=== PATIENT | female | born 1960 | race Caucasian/White ===

== ENCOUNTER 2021-12-17 09:44 | Inpatient (IN) ==
[2021-12-17] MEDS ORDERED: ALBUT/IPRATROP 3MG/0.5MG NEB 3 ML VIAL NEB STA (10:07)
[2021-12-17] MEDS ORDERED: ACETAMINOPHEN 325 MG TAB PO STA (10:11)
--- NOTE | 2021-12-17 10:45 | XRay Report ---
SINGLE VIEW CHEST CLINICAL HISTORY: Cough and dyspnea. Fever. FINDINGS: An AP, portable, upright chest radiograph is compared to study dated 03/14/2021 and correla eleno with chest CT dated 07/15/2014. The cardiomediastinal silhouette is unremarkable. Emphysema and ch ronic interstitial thickening similar to previous. Scarring/atelectasis is noted at the lung bases. T he lungs and pleural spaces are otherwise clear. No pneumothorax is seen. The skeletal structures are osteopenic. The bony thorax is grossly intact. Degenerative change is seen in the shoulders. IMPRESSION: Emphysematous change with no active disease in the chest. ACT 112: Negative or not required by law. Electronically signed by: Jamshid Cho M.D. 12/17/2021 10:43 AM
[2021-12-17 11:26] LABS: Basophils # (auto) 0.05 K/uL (0-0.2); Basophils % (auto) 0.6 %; Eosinophils # (auto) 0.28 K/uL (0-0.50); Eosinophils % (auto) 3.5 %; Hematocrit (blood only) 45.3 % (34.1-44.9); Hemoglobin 15.5 g/dl (12.0-16.0); Immature Granulocytes # (auto) 0.05 K/uL (0.00-0.02); Immature Granulocytes % (auto) 0.6 %; Lymphocytes # (auto) 1.12 K/uL (1.2-3.4); Lymphocytes % (auto) 13.8 %; Mean Corpuscular Hemoglobin 31.7 pg (25.0-34.0); Mean Corpuscular Hgb Conc 34.2 g/dL (32.0-36.0); Mean Corpuscular Volume 92.6 fL (80.0-100.0); Mean Platelet Volume 11.6 fL (9.4-12.3); Monocytes % (auto) 17.3 %; Neutrophils % (auto) 64.2 %; Platelet Count 236 K/uL (130-400); RDW Coefficient of Variation 14.3 % (11.5-14.5); RDW Standard Deviation 48.8 fL (36.4-46.3); Red Blood Count 4.89 M/uL (3.93-5.22)
[2021-12-17 11:37] LABS: Influenza A virus by PCR Negative (Neg); Influenza B virus by PCR Negative (Neg); RSV by PCR Negative (Neg); SARS CoV2 RNA(COVID-19) InHosp NEGATIVE (Negative)
[2021-12-17 11:58] LABS: Albumin Globulin Ratio 1.3 (0.9-2); Albumin Level 4.3 gm/dl (3.4-5.0); BUN Creatinine Ratio 19.7 (10-20); Bilirubin,Total 0.3 mg/dl (0.2-1.0); Calcium 9.3 mg/dl (8.5-10.1); Creatinine Clr Calc Pharmacy 86.3 ml/min; Est GFR (African American) 111.8 ml/min; Est GFR (Non-African American) 96.5 ml/min; Globulin 3.3 gm/dl (2.5-4.0); Potassium 4.1 mmol/L (3.5-5.1); Total Protein 7.6 gm/dl (6.0-8.3)
[2021-12-17] MEDS ORDERED: dexAMETHasone**PF** 10 MG/ML VIAL IV ONE (12:28)
--- NOTE | 2021-12-17 13:38 | History & Physical Report ---
Date of Service December 17, 2021 Assessment & Plan (1) Pneumonia: (2) COPD (chronic obstructive pulmonary disease): (3) Acute on chronic respiratory failure with hypoxia: Plan: - COVID-19 is highly suspected as the patient has been in close contact with a positive patient, unvaccinated, and is newly symptomatic. Initial test for covid with cefeid is negative, biofire is pending to evaluate and identify other causative agents. Suspicion for an underlying pneumonia in the setting of her chronic COPD - Procalcitonin ordered, follow - Lymphocytes , neutrophils 5.20 - CXR reviewed: showing showing emphysematous changes but no acute active disease in the chest - O2 sats are 87% in the ER without oxygen, improved to 94% with 2 L, patient does not wear any O2 at baseline - WBC 8.10 - Remdesivir 200 mg IV x 1 then 100 mg daily therafter, decadron 6 mg IV daily. Patient already received a dose of Decadron in the ER 10 mg IV. - Checking blood cultures x2, lactic acid, CRP - Starting on ceftriaxone and doxycycline IV - Patient uses albuterol inhaler several times daily at home, is not on any other inhaler therapy, consider pulmonary consultation for maintenance regimen of COPD, formal PFTs, ongoing care. (4) HTN (hypertension): Plan: - Patient is not on any antihypertensive medications, BP is currently 160/74, monitor on telemetry -Order IV hydralazine as needed DVT PPx: -- teds, scds, Lovenox subcu 40 mg daily, increase chemical prophylaxis if positive for COVID CODE: DNR/DNI-discussed with the patient in depth over the phone. Dispo: From home, likely to remain in the hospital x 1-2 days. History of Present Illness Chief Complaint: Fever Primary Care Provider: NO PCP This is a 61 yo F with PMHx of COPD, emphysema, HTN, who presents with acute onset of flu like symptoms including, fever, chills, cough and shortness of breath which began overnight. She was found to be hypoxic in the 80s when she presented to the ER. Pt also came with her boyfriend to the ER, who is also a patient in a different room, and he tested positive for COVID. Ailyn tests negative for covid today. Early this morning her fever was 101.7, and took one tylenol at home at 3am. She also admits to cough with green sputum which has been ongoing x 1 month, worse today though, admits to sinus congestion. She has chest heaviness and feels that this happens routinely at bedtime, it is no different today. She routinely smokes 1ppd since was 13 years old, but has never required oxygen at baseline. Reports living with her boyfriend, Jonatan Gonzalez. They have been around each other and sharing common spaces, but do not sleep in the same bedroom. She notes he has had similar complaints for a few days. Not vaccinated against covid. She uses an albuterol inhaler as a rescue inhaler and normally uses it daily but not today. Allergies Allergy/AdvReac Type Severity Reaction Status Date / Time No Known Allergies Allergy Mild Verified 12/17/21 12:17 Home Medications Medication Instructions Recorded Confirmed Type albuterol 90 mcg/actuation aerosol 90 mcg inhalation Q6H PRN 12/17/21 12/17/21 History inhaler Shortness Of Breath Past Med/Surg History Medical History (Updated 12/17/21 @ 14:20 by Nancy Horan PA-C) Acute lumbar myofascial strain COPD (chronic obstructive pulmonary disease) HTN (hypertension) Surgical History (Updated 12/17/21 @ 14:13 by Nancy Horan PA-C) History of tonsillectomy and adenoidectomy Hx of repair of left rotator cuff Family History (Updated 12/17/21 @ 14:14 by Nancy Horan PA-C) Mother Cancer Lung Father Cancer Prostate and bladder cx Brother Melanoma Back, s/p removal Social History (Updated 12/17/21 @ 14:14 by Nancy Horan PA-C) Smoking Status: Current every day smoker Tobacco Type: Cigarettes Hx Alcohol Use: Yes Alcohol type: beer Alcohol type Comment: 2-3 daily Preferred Language: Icelandic Feels Safe at Home: Yes Review of Systems Review of Systems: Constitutional: + fever, no sweats or chills Eyes: No diplopia, no worsening or blurred vision ENT: normal hearing, no trouble swallowing Respiratory: + cough, + sputum, dyspnea at rest, + dyspnea on exertion Cardiovascular: No chest pain, + chest heaviness HS as per HPI, none currently, no palpitations Abdomen: No pain, nausea, vomiting, diarrhea or constipation Musculoskeletal: No joint pain, calf pain, swelling Neurologic: No weakness, numbness/tingling, or balance problems Psychiatric: No anxiety or depression Skin: No rash or itch Physical Exam Physical Exam: Please refer to attending addendum as I did not see the patient in person. Results & Data Results & Data ([facility]) Vital Signs (Past 12 Hours) Vital Signs Temp Pulse Pulse Resp BP BP Pulse Ox 12/17/21 13:04 94 H 18 160/74 H 94 12/17/21 12:00 104 H 24 87 L 12/17/21 10:08 38 C H 12/17/21 09:56 37.0 C 118 H 20 120/75 92 O2 Del Method O2 Flow Rate 12/17/21 13:04 Nasal Cannula 2 12/17/21 12:00 Room Air 12/17/21 10:08 12/17/21 09:56 Room Air Laboratory Results 12/17/21 12/17/21 12/17/21 10:59 10:59 10:45 WBC 8.10 RBC 4.89 Hgb 15.5 Hct 45.3 H MCV 92.6 MCH 31.7 MCHC 34.2 RDW Std Deviation 48.8 H RDW Coeff of Carla 14.3 Plt Count 236 MPV 11.6 Immature Gran % (Auto) 0.6 Neut % (Auto) 64.2 Lymph % (Auto) 13.8 [place] % (Auto) 17.3 Eos % (Auto) 3.5 Baso % (Auto) 0.6 Neut # (Auto) 5.20 Lymph # (Auto) 1.12 L [place] # (Auto) 1.40 H Eos # (Auto) 0.28 Baso # (Auto) 0.05 Immature Gran # (Auto) 0.05 H Sodium 136 Potassium 4.1 Chloride 104 Carbon Dioxide 23 Anion Gap 9 BUN 12 Creatinine 0.61 Est Cr Clr Drug Dosing 86.3 Est GFR ( Amer) 111.8 Est GFR (Non-Af Amer) 96.5 BUN/Creatinine Ratio 19.7 Glucose 94 Calcium 9.3 Total Bilirubin 0.3 AST 25 ALT 18 Alkaline Phosphatase 66 Total Protein 7.6 Albumin 4.3 Globulin 3.3 Albumin/Globulin Ratio 1.3 SARS-CoV-2 (PCR) NEGATIVE Influenza Type A (PCR) Negative Influenza Type B (PCR) Negative RSV (RT-PCR) Negative Diagnostic Findings Chest X-Ray 12/17/21 10:07 SINGLE VIEW CHEST CLINICAL HISTORY: Cough and dyspnea. Fever. FINDINGS: An AP, portable, upright chest radiograph is compared to study dated 03/14/2021 and correlated with chest CT dated 07/15/2014. The cardiomediastinal silhouette is unremarkable. Emphysema and chronic interstitial thickening similar to previous. Scarring/atelectasis is noted at the lung bases. The lungs and pleural spaces are otherwise clear. No pneumothorax is seen. The skeletal structures are osteopenic. The bony thorax is grossly intact. Degenerative change is seen in the shoulders. IMPRESSION: Emphysematous change with no active disease in the chest. ACT 112: Negative or not required by law. Electronically signed by: Jamshid Cho M.D. 12/17/2021 10:43 AM Code Status & VTE Plan Code Status DNR/DNI - discussed with the patient at bedside Supervising Physician Co-Signing Physician Notes Ending addendum: The patient was seen and examined in the emergency room She has been to a physician for years and does not take any prescribed medications and continues to smoke heavily Came to ER with increasing shortness of breath, cough and fever of 101 F since yesterday No chest pain and/or palpitation Recent COVID exposure and unvaccinated On examination Moderate shortness of breath at rest Hemodynamically stable with a temperature of 38 C Chestdecreased breath sounds bilaterally with coarse crackles bilaterally HeartS1-S2 regular Abdomenbenign Extremitiesnegative for any edema CNSalert, awake and oriented x3. No focal sensory or no motor deficit appreciated Her admission labs, EKG and imaging studies noted Has COPD with possible bronchitis and COVID-19 virus infection No definite pneumonic consolidation but will start antibiotic with ceftriaxone and doxycycline She is not vaccinated Started with remdesivir and dexamethasone Agree with assessment and plan as outlined above by BARTOLO Rodriguez Dr (1) COPD (chronic obstructive pulmonary disease) COPD type: COPD with acute exacerbation Qualified Code(s): J44.1 - Chronic obstructive pulmonary disease with (acute) exacerbation (2) HTN (hypertension) Hypertension type: unspecified Qualified Code(s): I10 - Essential (primary) hypertension
[2021-12-17] MEDS ORDERED: cefTRIAXone SODIUM 1,000 MG in DEXTROSE 5% 50 ML IV SCH (14:15)
[2021-12-17] MEDS ORDERED: REMDESIVIR 200 MG in SODIUM CHLORIDE 0.9% 210 ML IV STA (14:32)
[2021-12-17 15:37] LABS: Adenovirus PCR Not Detected (NotDetected); Bordetella parapertussis PCR Not Detected (NotDetected); Bordetella pertussis PCR Not Detected (NotDetected); Chlamydia pneumoniae PCR Not Detected (NotDetected); Coronavirus 229E PCR Not Detected (NotDetected); Coronavirus CoV-2 (COVID19)PCR Not Detected (NotDetected); Coronavirus HKU1 PCR Not Detected (NotDetected); Coronavirus NL63 PCR Not Detected (NotDetected); Coronavirus OC43PCR Not Detected (NotDetected); Human Metapneumovirus PCR Not Detected (NotDetected); Influenza A PCR Not Detected (NotDetected); Influenza B PCR Not Detected (NotDetected); Mycoplasma pneumoniae PCR Not Detected (NotDetected); Parainfluenza Virus 1 PCR Not Detected (NotDetected); Parainfluenza Virus 2 PCR Not Detected (NotDetected); Parainfluenza Virus 3 PCR Not Detected (NotDetected); Parainfluenza Virus 4 PCR Not Detected (NotDetected); Respiratory Syncytial VirusPCR Not Detected (NotDetected); Rhinovirus/Enterovirus PCR Not Detected (NotDetected)
[2021-12-17] MEDS: cefTRIAXone SODIUM 2,000 MG in DEXTROSE 5% 50 ML IV SCH (15:37)
[2021-12-17] MEDS ORDERED: ACETAMINOPHEN 325 MG TAB ONE (15:40)
[2021-12-17] MEDS: DOXYCYCLINE HYCLATE 100 MG in DEXTROSE 5% 100 ML IV SCH (16:03)
[2021-12-17] MEDS ORDERED: ACETAMINOPHEN 325 MG TAB PO PRN (19:53)
[2021-12-17] MEDS ORDERED: ONDANSETRON INJ 2 MG/ML 2 ML VIAL IV PRN (19:53)
[2021-12-17] MEDS: ALBUTEROL HFA 8 GM INHALER INH SCH (20:23)
[2021-12-17] MEDS: guaiFENesin 600 MG TABCR PO SCH (20:33)
[2021-12-18] MEDS: DOXYCYCLINE HYCLATE 100 MG in DEXTROSE 5% 100 ML IV SCH ×3 (03:27→15:39)
[2021-12-18 06:09] LABS: Hemoglobin 14.9 g/dl (12.0-16.0); Mean Corpuscular Hgb Conc 33.9 g/dL (32.0-36.0); Mean Corpuscular Volume 91.7 fL (80.0-100.0); Mean Platelet Volume 11.8 fL (9.4-12.3); Platelet Count 189 K/uL (130-400); RDW Standard Deviation 47.5 fL (36.4-46.3)
[2021-12-18 06:33] LABS: Albumin Globulin Ratio 1.3 (0.9-2); Albumin Level 3.8 gm/dl (3.4-5.0); BUN Creatinine Ratio 25.4 (10-20); Bilirubin,Total 0.2 mg/dl (0.2-1.0); Calcium 8.8 mg/dl (8.5-10.1); Chol HDL Ratio 3.3 (0-5); Creatinine Clr Calc Pharmacy 83.4 ml/min; Est GFR (African American) 110.6 ml/min; Est GFR (Non-African American) 95.5 ml/min; Globulin 2.9 gm/dl (2.5-4.0); Potassium 3.7 mmol/L (3.5-5.1); Total Protein 6.7 gm/dl (6.0-8.3)
--- NOTE | 2021-12-18 07:25 | Emergency Department Note ---
History of Present Illness General Chief complaint: Fever Stated complaint: FEVER,HEADACHE,BODY ACHES,SOB Time Seen by Provider: 12/17/21 10:00 Source: patient Mode of arrival: ambulatory Limitations: no limitations History of Present Illness Maximum Pain Intensity: 7 This patient is a 61-year-old female who presents to the emergency department for evaluation of shortness of breath and flulike symptoms. Patient reports that she woke up this morning feeling sick. Her significant other is ill with similar symptoms. Patient reports fevers, headaches, body aches, cough and shortness of breath. She is a smoker and has a history of COPD. Patient reports a recent COVID-19 exposure. She has not been vaccinated for COVID-19. Home Medications Medication Instructions Recorded Confirmed Type albuterol 90 mcg/actuation aerosol 90 mcg inhalation Q6H PRN 12/17/21 12/17/21 History inhaler Shortness Of Breath Allergies Allergy/AdvReac Type Severity Reaction Status Date / Time No Known Allergies Allergy Mild Verified 12/17/21 12:17 Past Med/Surg History Medical History Acute lumbar myofascial strain COPD (chronic obstructive pulmonary disease) HTN (hypertension) Surgical History History of tonsillectomy and adenoidectomy Hx of repair of left rotator cuff Family History Mother Cancer Lung Father Cancer Prostate and bladder cx Brother Melanoma Back, s/p removal Social History Smoking Status: Heavy tobacco smoker Tobacco Type: Cigarettes Second Hand Exposure: Yes; Do You Dip or Chew Tobacco: No; Tobacco Cessation Education Requested by Patient: No Hx Alcohol Use: Yes Alcohol type: beer and hard liquor Alcohol type Comment: 2- 3 daily Hx Substance Use: Yes Last Used Substance Other:: 30 years ago Preferred Language: Cuban Communication Ability: Effective Sprigger Required: No Beliefs That Will Affect Care: None Current Living Situation: Significant Other Other Information That Helps Us Care for You: No Feels Safe at Home: Yes Safety Concerns: Feels Safe At This Time Assistive Devices: Denture - Upper and Glasses Review of Systems A total of 10 systems reviewed and were otherwise negative Physical Exam Vital Signs Vital Signs - 24 hr 12/17/21 09:56 12/17/21 10:08 12/17/21 12:00 Temperature 37.0 C 38 C H Temperature Source Temporal Artery Scan Oral Pulse Rate 118 H Pulse Rate [Finger] 104 H Pulse Rhythm [Finger] Regular Pulse Strength [Finger] Normal Respiratory Rate 20 24 Respiratory Effort / Characteristics Pursed Lip Respiratory Depth Normal Blood Pressure 120/75 Blood Pressure [Left Arm] Blood Pressure Mean 90 Blood Pressure Mean [Left Arm] Pulse Oximetry 92 87 L Oxygen Delivery Method Room Air Room Air Oxygen Flow Rate Sepsis Recent Fever Within 48 Hours No Sepsis New/Unexplained Change in Mental Status N/A Sepsis Action Taken by Nursing No Action Required 12/17/21 13:04 Temperature Temperature Source Pulse Rate Pulse Rate [Finger] 94 H Pulse Rhythm [Finger] Pulse Strength [Finger] Respiratory Rate 18 Respiratory Effort / Characteristics Respiratory Depth Blood Pressure Blood Pressure [Left Arm] 160/74 H Blood Pressure Mean Blood Pressure Mean [Left Arm] 102 Pulse Oximetry 94 Oxygen Delivery Method Nasal Cannula Oxygen Flow Rate 2 Sepsis Recent Fever Within 48 Hours Sepsis New/Unexplained Change in Mental Status Sepsis Action Taken by Nursing VITALS: Vitals are noted on the nurse's note and reviewed by myself. GENERAL: This is a 61-year-old female, in no acute distress, well-developed well-nourished. SKIN: The skin was without rashes. EARS: External auditory canals clear, tympanic membranes pearly guaman without erythema or effusion bilaterally. EYES: Pupils equal round and reactive to light and accommodation. NOSE: Patent, turbinates without inflammation or discharge. MOUTH: Mucous membranes moist. Tonsils are not enlarged. Pharynx without erythema or exudate. NECK: Supple without nuchal rigidity. No lymphadenopathy. HEART: Regular rate and rhythm without murmurs gallops or rubs. LUNGS: Patient appears to be short of breath. Expiratory wheezes noted throughout. NEURO: Patient was alert and oriented to person place and time. Course Administered Medications Albuterol (Albuterol Hfa 8 Gm Inhaler) 2 puffs INH QIDR PETER Stop: 01/16/22 19:52 Last Admin: 12/18/21 07:46 Dose: 2 puffs Documented By: Admin: 12/17/21 20:23 Dose: 2 puffs Documented By: AB Guaifenesin (Guaifenesin 600 Mg Tabcr) 1,200 mg PO Q12 PETER Stop: 01/16/22 20:59 Last Admin: 12/17/21 20:33 Dose: 1,200 mg Documented By: KRISTAN Doxycycline Hyclate 100 mg/ (Dextrose) 110 mls @ 50 mls/hr IV Q12H PETER Stop: 12/24/21 14:44 Last Infusion: 12/18/21 05:39 Dose: 0 mls/hr Documented By: Admin: 12/18/21 03:27 Dose: 50 mls/hr Documented By: Infusion: 12/17/21 18:17 Dose: 0 mls/hr Documented By: Admin: 12/17/21 16:03 Dose: 50 mls/hr Documented By: SALIMA Ceftriaxone Sodium 2,000 mg/ (Dextrose) 70 mls @ 140 mls/hr IV Q24H PETER Stop: 12/24/21 14:59 Last Infusion: 12/17/21 16:09 Dose: 0 mls/hr Documented By: Admin: 12/17/21 15:37 Dose: 140 mls/hr Documented By: SALIMA Discontinued Medications Acetaminophen (Acetaminophen 325 Mg Tab) 650 mg PO NOW STA Stop: 12/17/21 10:12 Last Admin: 12/17/21 10:44 Dose: 650 mg Documented By: ERROL Acetaminophen (Acetaminophen 325 Mg Tab) Confirm Administered Dose 650 mg .ROUTE .STK-MED ONE Stop: 12/17/21 15:41 Last Admin: 12/17/21 15:44 Dose: 650 mg Documented By: SALIMA Albuterol (Albut/Ipratrop 3mg/0.5mg Neb 3 Ml Vial) 3 ml NEB NOW STA; Protocol Stop: 12/17/21 10:08 Last Admin: 12/17/21 10:45 Dose: 3 ml Documented By: ERROL Dexamethasone Sodium Phosphate (DexamethasonePf 10 Mg/Ml Vial) 10 mg IV NOW ONE Stop: 12/17/21 12:29 Last Admin: 12/17/21 12:33 Dose: 10 mg Documented By: ERROL Remdesivir 200 mg/ Sodium (Chloride) 250 mls @ 125 mls/hr IV ONE STA; Protocol Stop: 12/17/21 16:31 Last Infusion: 12/17/21 17:17 Dose: 0 mls/hr Documented By: Admin: 12/17/21 15:09 Dose: 125 mls/hr Documented By: SALIMA Medical Decision Making Differential Diagnosis Reactive airway disease, pneumonia, pneumothorax, COPD, CHF, infections, cardiac ischemia, pulmonary embolism, musculoskeletal, gastrointestinal, as well as other pathologies. Home Medications Current Medication List: was personally reviewed by me Laboratory Data Attestation: I reviewed the patient's lab results. Result diagrams: 12/18/21 05:40 12/18/21 05:40 Lab Results 12/17/21 12/17/21 12/17/21 Range/Units 10:45 10:45 10:59 WBC 8.10 (4.8-10.8) K/ul RBC 4.89 (3.93-5.22) M/uL Hgb 15.5 (12.0-16.0) g/dl Hct 45.3 H (34.1-44.9) % MCV 92.6 (80.0-100.0) fL MCH 31.7 (25.0-34.0) pg MCHC 34.2 (32.0-36.0) g/dL RDW Std Deviation 48.8 H (36.4-46.3) fL RDW Coeff of Carla 14.3 (11.5-14.5) % Plt Count 236 (130-400) K/uL MPV 11.6 (9.4-12.3) fL Immature Gran % (Auto) 0.6 % Neut % (Auto) 64.2 % Lymph % (Auto) 13.8 % [place] % (Auto) 17.3 % Eos % (Auto) 3.5 % Baso % (Auto) 0.6 % Neut # (Auto) 5.20 (1.4-6.5) K/uL Lymph # (Auto) 1.12 L (1.2-3.4) K/uL [place] # (Auto) 1.40 H (0.24-0.82) K/uL Eos # (Auto) 0.28 (0-0.50) K/uL Baso # (Auto) 0.05 (0-0.2) K/uL Immature Gran # (Auto) 0.05 H (0.00-0.02) K/uL Sodium (136-145) mmol/L Potassium (3.5-5.1) mmol/L Chloride (98-107) mmol/L Carbon Dioxide (21-32) mmol/L Anion Gap (3-11) BUN (6-23) mg/dl Creatinine (0.6-1.2) mg/dl Est Cr Clr Drug Dosing ml/min Est GFR ( Amer) ml/min Est GFR (Non-Af Amer) ml/min BUN/Creatinine Ratio (10-20) Glucose (70-99(Fasting)) mg/dl Calcium (8.5-10.1) mg/dl Total Bilirubin (0.2-1.0) mg/dl AST (13-39) U/L ALT (7-52) U/L Alkaline Phosphatase (34-104) U/L C-Reactive Protein (0-0.5) mg/dl Total Protein (6.0-8.3) gm/dl Albumin (3.4-5.0) gm/dl Globulin (2.5-4.0) gm/dl Albumin/Globulin Ratio (0.9-2) Procalcitonin (0-0.5) ng/ml Adenovirus (PCR) Not Detected (NotDetected) B. pertussis DNA (PCR) Not Detected (NotDetected) B.parapertussis DNA PCR Not Detected (NotDetected) C. pneumoniae DNA (PCR) Not Detected (NotDetected) Coronavirus OC43 (PCR) Not Detected (NotDetected) Coronavirus HKU1 (PCR) Not Detected (NotDetected) Coronavirus 229E (PCR) Not Detected (NotDetected) SARS-CoV-2 (PCR) NEGATIVE Not Detected (Negative) Coronavirus NL63 (PCR) Not Detected (NotDetected) Human Metapneumovir PCR Not Detected (NotDetected) Influenza Type A (PCR) Negative Not Detected (Neg) Influenza Type B (PCR) Negative Not Detected (Neg) M. pneumoniae (PCR) Not Detected (NotDetected) Parainfluenza 1 (PCR) Not Detected (NotDetected) Parainfluenza 2 (PCR) Not Detected (NotDetected) Parainfluenza 3 (PCR) Not Detected (NotDetected) Parainfluenza 4 (PCR) Not Detected (NotDetected) RSV (RT-PCR) Negative (Neg) RSV (PCR) Not Detected (NotDetected) Entero/Rhino (PCR) Not Detected (NotDetected) 12/17/21 12/17/21 12/17/21 Range/Units 10:59 10:59 11:09 WBC (4.8-10.8) K/ul RBC (3.93-5.22) M/uL Hgb (12.0-16.0) g/dl Hct (34.1-44.9) % MCV (80.0-100.0) fL MCH (25.0-34.0) pg MCHC (32.0-36.0) g/dL RDW Std Deviation (36.4-46.3) fL RDW Coeff of Carla (11.5-14.5) % Plt Count (130-400) K/uL MPV (9.4-12.3) fL Immature Gran % (Auto) % Neut % (Auto) % Lymph % (Auto) % [place] % (Auto) % Eos % (Auto) % Baso % (Auto) % Neut # (Auto) (1.4-6.5) K/uL Lymph # (Auto) (1.2-3.4) K/uL [place] # (Auto) (0.24-0.82) K/uL Eos # (Auto) (0-0.50) K/uL Baso # (Auto) (0-0.2) K/uL Immature Gran # (Auto) (0.00-0.02) K/uL Sodium 136 (136-145) mmol/L Potassium 4.1 (3.5-5.1) mmol/L Chloride 104 (98-107) mmol/L Carbon Dioxide 23 (21-32) mmol/L Anion Gap 9 (3-11) BUN 12 (6-23) mg/dl Creatinine 0.61 (0.6-1.2) mg/dl Est Cr Clr Drug Dosing 86.3 ml/min Est GFR ( Amer) 111.8 ml/min Est GFR (Non-Af Amer) 96.5 ml/min BUN/Creatinine Ratio 19.7 (10-20) Glucose 94 (70-99(Fasting)) mg/dl Calcium 9.3 (8.5-10.1) mg/dl Total Bilirubin 0.3 (0.2-1.0) mg/dl AST 25 (13-39) U/L ALT 18 (7-52) U/L Alkaline Phosphatase 66 (34-104) U/L C-Reactive Protein 2.66 H (0-0.5) mg/dl Total Protein 7.6 (6.0-8.3) gm/dl Albumin 4.3 (3.4-5.0) gm/dl Globulin 3.3 (2.5-4.0) gm/dl Albumin/Globulin Ratio 1.3 (0.9-2) Procalcitonin < 0.05 (0-0.5) ng/ml Adenovirus (PCR) (NotDetected) B. pertussis DNA (PCR) (NotDetected) B.parapertussis DNA PCR (NotDetected) C. pneumoniae DNA (PCR) (NotDetected) Coronavirus OC43 (PCR) (NotDetected) Coronavirus HKU1 (PCR) (NotDetected) Coronavirus 229E (PCR) (NotDetected) SARS-CoV-2 (PCR) (Negative) Coronavirus NL63 (PCR) (NotDetected) Human Metapneumovir PCR (NotDetected) Influenza Type A (PCR) (Neg) Influenza Type B (PCR) (Neg) M. pneumoniae (PCR) (NotDetected) Parainfluenza 1 (PCR) (NotDetected) Parainfluenza 2 (PCR) (NotDetected) Parainfluenza 3 (PCR) (NotDetected) Parainfluenza 4 (PCR) (NotDetected) RSV (RT-PCR) (Neg) RSV (PCR) (NotDetected) Entero/Rhino (PCR) (NotDetected) Imaging Data Attestation: I personally reviewed and interpreted this imaging study as follows: Radiologist's Impression: Chest X-Ray 12/17/21 10:07 SINGLE VIEW CHEST CLINICAL HISTORY: Cough and dyspnea. Fever. FINDINGS: An AP, portable, upright chest radiograph is compared to study dated 03/14/2021 and correlated with chest CT dated 07/15/2014. The cardiomediastinal silhouette is unremarkable. Emphysema and chronic interstitial thickening similar to previous. Scarring/atelectasis is noted at the lung bases. The lungs and pleural spaces are otherwise clear. No pneumothorax is seen. The skeletal structures are osteopenic. The bony thorax is grossly intact. Degenerative change is seen in the shoulders. IMPRESSION: Emphysematous change with no active disease in the chest. ACT 112: Negative or not required by law. Electronically signed by: Jamshid Cho M.D. 12/17/2021 10:43 AM MDM Narrative Continuous threat monitoring analyst: Order was placed for continuous threat monitoring analyst. Patient was placed on the threat monitoring analyst. Patient was noted to be in sinus tachycardia at an initial rate of 104 bpm. The patient is a 61-year-old female who presents today complaining of shortness of breath and flu like symptoms. Labs revealed no leukocytosis, anemia or significant electrolyte imbalance. Patient's testing for COVID-19, influenza a nd RSV was negative. However, patient's significant other was positive for COVID-19 and I suspect that the patient's symptoms are due to COVID-19 infection. She was found to be hypoxic at 87% on room air. She was placed on oxygen via nasal cannula and was given IV Decadron. [facility] who agreed to evaluate the patient for further care. Impression & Plan Hypoxia, COPD exacerbation Discharge Plan Visit Data Chief Complaint: Fever Stated Complaint: FEVER,HEADACHE,BODY ACHES,SOB ED Provider: Leonardo Dempsey ED Midlevel Provider: Mandy Molina Discharge Problem: Hypoxia, COPD exacerbation Patient Disposition: Admitted As Inpatient Discharge Instructions Interventions: ED Discharge Assessment Last Done: 12/17/21 18:57
[2021-12-18 07:33] LABS: Estimated Average Glucose 114 mg/dl; Hemoglobin A1C 5.6 % (4.5-5.6)
[2021-12-18] MEDS: ALBUTEROL HFA 8 GM INHALER INH SCH ×4 (07:46→19:41)
[2021-12-18] MEDS: guaiFENesin 600 MG TABCR PO SCH ×2 (09:11→20:20)
[2021-12-18] MEDS: dexAMETHasone 6 MG in SYRINGE 0 ML IV SCH (09:12)
--- NOTE | 2021-12-18 09:32 | Hospitalist Progress Note ---
Date of Service December 18, 2021 Assessment & Plan (1) Pneumonia: (2) COPD (chronic obstructive pulmonary disease): (3) Acute on chronic respiratory failure with hypoxia: Plan: - COVID-19 is highly suspected as the patient has been in close contact with a positive patient, unvaccinated, and is newly symptomatic. Initial test for covid with cefeid is negative, biofire negative Likely early pneumonia in the setting of her chronic COPD - Procalcitonin negative, lactic acid negative - CRP elevated - WBC wnl - CXR reviewed: showing showing emphysematous changes but no acute active disease in the chest - O2 sats are 87% in the ER without oxygen, improved to 94% with 2 L, patient does not wear any O2 at baseline - Remdesivir 200 mg IV x 1 then 100 mg daily therafter, decadron 6 mg IV daily. Patient already received a dose of Decadron in the ER 10 mg IV. - blood cultures - pending - Starting on ceftriaxone and doxycycline IV, will cont. -Guaifenesin, incentive spirometry, flutter valve - Patient uses albuterol inhaler several times daily at home, is not on any other inhaler therapy, consider pulmonary consultation for maintenance regimen of COPD, formal PFTs, ongoing care. (4) HTN (hypertension): Plan: - Patient is not on any antihypertensive medications, BP on admission 160/74, monitor on telemetry -Order IV hydralazine as needed DVT PPx: -- teds, scds, Lovenox subcu 40 mg daily, increase chemical prophylaxis if positive for COVID CODE: DNR/DNI-discussed with the patient in depth over the phone. Dispo: From home, likely to remain in the hospital x 1-2 days. Admission and Anticipated Discharge Date Admission Date: December 17, 2021 Subjective Pt seen in follow up of hypoxia, shortness of breath, poss. COVID 19 pna, COPD Currently continues to require O2, 2L , at home does not use any She also reports she has not seen a physician in a long time, due to lack of insurance She believes now she has insurance, will need to be established with a physician Currently feels well, denies any fevers, chills, chest pain, shortness of br eath, abdominal pain, nausea vomiting Says that she woke up at night, feeling feverish and therefore presented in the hospital She is a current smoker Reports chronic cough and sputum production Review of Systems Review of Systems: All systems reviewed & are unremarkable except as noted in Subjective Physical Exam Physical Exam: General: elderly F, chronically ill appearing, on 2 L of O2 via NC HEENT: NC/AT, EOMI Chest: decreased breath sounds bilaterally , no wheezing, rhonchi noted Heart: S1-S2 regular Abdomen: soft, + bowel sounds, nontender, nondistended Extremities: no LE edema, moves extremities Neuro: alert, awake and oriented x3.speech fluent, answering questions appropriately, moves extremities Skin: warm, dry, no rashes noted Results & Data Results & Data ([facility]) Vital Signs (Past 12 Hours) Vital Signs Temp Pulse Pulse Resp BP BP BP 12/18/21 07:46 79 18 12/18/21 07:42 36.8 C 80 20 149/86 H 12/18/21 07:00 60 12/18/21 00:00 86 12/18/21 04:12 36.7 C 64 20 145/79 H 12/18/21 00:01 36.7 C 80 24 163/96 H 12/17/21 23:23 12/17/21 23:23 36.6 C 88 18 153/91 H 12/17/21 23:22 36.6 C 85 18 153/91 H 12/17/21 22:30 78 16 153/89 H Pulse Ox O2 Del Method O2 Flow Rate 12/18/21 07:46 99 Nasal Cannula 3 12/18/21 07:42 98 Room Air 12/18/21 07:00 12/18/21 00:00 12/18/21 04:12 94 Nasal Cannula 3 12/18/21 00:01 93 Nasal Cannula 3 12/17/21 23:23 Nasal Cannula 3 12/17/21 23:23 91 Nasal Cannula 2 12/17/21 23:22 92 Nasal Cannula 2 12/17/21 22:30 94 Nasal Cannula 2 Laboratory Results 12/18/21 12/18/21 12/18/21 Range/Units 05:40 05:40 05:40 WBC 5.70 (4.8-10.8) K/ul RBC 4.80 (3.93-5.22) M/uL Hgb 14.9 (12.0-16.0) g/dl Hct 44.0 (34.1-44.9) % MCV 91.7 (80.0-100.0) fL MCH 31.0 (25.0-34.0) pg MCHC 33.9 (32.0-36.0) g/dL RDW Std Deviation 47.5 H (36.4-46.3) fL RDW Coeff of Carla 14.0 (11.5-14.5) % Plt Count 189 (130-400) K/uL MPV 11.8 (9.4-12.3) fL Immature Gran % (Auto) % Neut % (Auto) % Lymph % (Auto) % Ritchie % (Auto) % Eos % (Auto) % Baso % (Auto) % Neut # (Auto) (1.4-6.5) K/uL Lymph # (Auto) (1.2-3.4) K/uL Ritchie # (Auto) (0.24-0.82) K/uL Eos # (Auto) (0-0.50) K/uL Baso # (Auto) (0-0.2) K/uL Immature Gran # (Auto) (0.00-0.02) K/uL Sodium 135 L (136-145) mmol/L Potassium 3.7 (3.5-5.1) mmol/L Chloride 104 (98-107) mmol/L Carbon Dioxide 24 (21-32) mmol/L Anion Gap 7 (3-11) BUN 16 (6-23) mg/dl Creatinine 0.63 (0.6-1.2) mg/dl Est Cr Clr Drug Dosing 83.4 ml/min Est GFR ( Amer) 110.6 ml/min Est GFR (Non-Af Amer) 95.5 ml/min BUN/Creatinine Ratio 25.4 H (10-20) Glucose 101 H (70-99(Fasting)) mg/dl Estimat Average Glucose 114 mg/dl Hemoglobin A1c 5.6 (4.5-5.6) % Lactate (0.4-2.0) mmol/L Calcium 8.8 (8.5-10.1) mg/dl Total Bilirubin 0.2 (0.2-1.0) mg/dl Direct Bilirubin 0.0 (0-0.2) mg/dl AST 23 (13-39) U/L ALT 17 (7-52) U/L Alkaline Phosphatase 58 (34-104) U/L C-Reactive Protein (0-0.5) mg/dl Total Protein 6.7 (6.0-8.3) gm/dl Albumin 3.8 (3.4-5.0) gm/dl Globulin 2.9 (2.5-4.0) gm/dl Albumin/Globulin Ratio 1.3 (0.9-2) Triglycerides 76 (0-150) mg/dl Cholesterol 192 (0-200) mg/dl LDL Cholesterol, Calc 119 mg/dl VLDL Cholesterol, Calc 15 (0-30) mg/dl HDL Cholesterol 58 mg/dl Cholesterol/HDL Ratio 3.3 (0-5) Procalcitonin (0-0.5) ng/ml Adenovirus (PCR) (NotDetected) B. pertussis DNA (PCR) (NotDetected) B.parapertussis DNA PCR (NotDetected) C. pneumoniae DNA (PCR) (NotDetected) Coronavirus OC43 (PCR) (NotDetected) Coronavirus HKU1 (PCR) (NotDetected) Coronavirus 229E (PCR) (NotDetected) SARS-CoV-2 (PCR) (Negative) Coronavirus NL63 (PCR) (NotDetected) Human Metapneumovir PCR (NotDetected) Influenza Type A (PCR) (Neg) Influenza Type B (PCR) (Neg) M. pneumoniae (PCR) (NotDetected) Parainfluenza 1 (PCR) (NotDetected) Parainfluenza 2 (PCR) (NotDetected) Parainfluenza 3 (PCR) (NotDetected) Parainfluenza 4 (PCR) (NotDetected) RSV (RT-PCR) (Neg) RSV (PCR) (NotDetected) Entero/Rhino (PCR) (NotDetected) 12/17/21 12/17/21 12/17/21 Range/Units 14:57 11:09 10:59 WBC (4.8-10.8) K/ul RBC (3.93-5.22) M/uL Hgb (12.0-16.0) g/dl Hct (34.1-44.9) % MCV (80.0-100.0) fL MCH (25.0-34.0) pg MCHC (32.0-36.0) g/dL RDW Std Deviation (36.4-46.3) fL RDW Coeff of Carla (11.5-14.5) % Plt Count (130-400) K/uL MPV (9.4-12.3) fL Immature Gran % (Auto) % Neut % (Auto) % Lymph % (Auto) % Ritchie % (Auto) % Eos % (Auto) % Baso % (Auto) % Neut # (Auto) (1.4-6.5) K/uL Lymph # (Auto) (1.2-3.4) K/uL Ritchie # (Auto) (0.24-0.82) K/uL Eos # (Auto) (0-0.50) K/uL Baso # (Auto) (0-0.2) K/uL Immature Gran # (Auto) (0.00-0.02) K/uL Sodium (136-145) mmol/L Potassium (3.5-5.1) mmol/L Chloride (98-107) mmol/L Carbon Dioxide (21-32) mmol/L Anion Gap (3-11) BUN (6-23) mg/dl Creatinine (0.6-1.2) mg/dl Est Cr Clr Drug Dosing ml/min Est GFR ( Amer) ml/min Est GFR (Non-Af Amer) ml/min BUN/Creatinine Ratio (10-20) Glucose (70-99(Fasting)) mg/dl Estimat Average Glucose mg/dl Hemoglobin A1c (4.5-5.6) % Lactate 0.6 (0.4-2.0) mmol/L Calcium (8.5-10.1) mg/dl Total Bilirubin (0.2-1.0) mg/dl Direct Bilirubin (0-0.2) mg/dl AST (13-39) U/L ALT (7-52) U/L Alkaline Phosphatase (34-104) U/L C-Reactive Protein 2.66 H (0-0.5) mg/dl Total Protein (6.0-8.3) gm/dl Albumin (3.4-5.0) gm/dl Globulin (2.5-4.0) gm/dl Albumin/Globulin Ratio (0.9-2) Triglycerides (0-150) mg/dl Cholesterol (0-200) mg/dl LDL Cholesterol, Calc mg/dl VLDL Cholesterol, Calc (0-30) mg/dl HDL Cholesterol mg/dl Cholesterol/HDL Ratio (0-5) Procalcitonin < 0.05 (0-0.5) ng/ml Adenovirus (PCR) (NotDetected) B. pertussis DNA (PCR) (NotDetected) B.parapertussis DNA PCR (NotDetected) C. pneumoniae DNA (PCR) (NotDetected) Coronavirus OC43 (PCR) (NotDetected) Coronavirus HKU1 (PCR) (NotDetected) Coronavirus 229E (PCR) (NotDetected) SARS-CoV-2 (PCR) (Negative) Coronavirus NL63 (PCR) (NotDetected) Human Metapneumovir PCR (NotDetected) Influenza Type A (PCR) (Neg) Influenza Type B (PCR) (Neg) M. pneumoniae (PCR) (NotDetected) Parainfluenza 1 (PCR) (NotDetected) Parainfluenza 2 (PCR) (NotDetected) Parainfluenza 3 (PCR) (NotDetected) Parainfluenza 4 (PCR) (NotDetected) RSV (RT-PCR) (Neg) RSV (PCR) (NotDetected) Entero/Rhino (PCR) (NotDetected) 12/17/21 12/17/21 12/17/21 Range/Units 10:59 10:59 10:45 WBC 8.10 (4.8-10.8) K/ul RBC 4.89 (3.93-5.22) M/uL Hgb 15.5 (12.0-16.0) g/dl Hct 45.3 H (34.1-44.9) % MCV 92.6 (80.0-100.0) fL MCH 31.7 (25.0-34.0) pg MCHC 34.2 (32.0-36.0) g/dL RDW Std Deviation 48.8 H (36.4-46.3) fL RDW Coeff of Carla 14.3 (11.5-14.5) % Plt Count 236 (130-400) K/uL MPV 11.6 (9.4-12.3) fL Immature Gran % (Auto) 0.6 % Neut % (Auto) 64.2 % Lymph % (Auto) 13.8 % Ritchie % (Auto) 17.3 % Eos % (Auto) 3.5 % Baso % (Auto) 0.6 % Neut # (Auto) 5.20 (1.4-6.5) K/uL Lymph # (Auto) 1.12 L (1.2-3.4) K/uL Ritchie # (Auto) 1.40 H (0.24-0.82) K/uL Eos # (Auto) 0.28 (0-0.50) K/uL Baso # (Auto) 0.05 (0-0.2) K/uL Immature Gran # (Auto) 0.05 H (0.00-0.02) K/uL Sodium 136 (136-145) mmol/L Potassium 4.1 (3.5-5.1) mmol/L Chloride 104 (98-107) mmol/L Carbon Dioxide 23 (21-32) mmol/L Anion Gap 9 (3-11) BUN 12 (6-23) mg/dl Creatinine 0.61 (0.6-1.2) mg/dl Est Cr Clr Drug Dosing 86.3 ml/min Est GFR ( Amer) 111.8 ml/min Est GFR (Non-Af Amer) 96.5 ml/min BUN/Creatinine Ratio 19.7 (10-20) Glucose 94 (70-99(Fasting)) mg/dl Estimat Average Glucose mg/dl Hemoglobin A1c (4.5-5.6) % Lactate (0.4-2.0) mmol/L Calcium 9.3 (8.5-10.1) mg/dl Total Bilirubin 0.3 (0.2-1.0) mg/dl Direct Bilirubin (0-0.2) mg/dl AST 25 (13-39) U/L ALT 18 (7-52) U/L Alkaline Phosphatase 66 (34-104) U/L C-Reactive Protein (0-0.5) mg/dl Total Protein 7.6 (6.0-8.3) gm/dl Albumin 4.3 (3.4-5.0) gm/dl Globulin 3.3 (2.5-4.0) gm/dl Albumin/Globulin Ratio 1.3 (0.9-2) Triglycerides (0-150) mg/dl Cholesterol (0-200) mg/dl LDL Cholesterol, Calc mg/dl VLDL Cholesterol, Calc (0-30) mg/dl HDL Cholesterol mg/dl Cholesterol/HDL Ratio (0-5) Procalcitonin (0-0.5) ng/ml Adenovirus (PCR) Not Detected (NotDetected) B. pertussis DNA (PCR) Not Detected (NotDetected) B.parapertussis DNA PCR Not Detected (NotDetected) C. pneumoniae DNA (PCR) Not Detected (NotDetected) Coronavirus OC43 (PCR) Not Detected (NotDetected) Coronavirus HKU1 (PCR) Not Detected (NotDetected) Coronavirus 229E (PCR) Not Detected (NotDetected) SARS-CoV-2 (PCR) Not Detected (Negative) Coronavirus NL63 (PCR) Not Detected (NotDetected) Human Metapneumovir PCR Not Detected (NotDetected) Influenza Type A (PCR) Not Detected (Neg) Influenza Type B (PCR) Not Detected (Neg) M. pneumoniae (PCR) Not Detected (NotDetected) Parainfluenza 1 (PCR) Not Detected (NotDetected) Parainfluenza 2 (PCR) Not Detected (NotDetected) Parainfluenza 3 (PCR) Not Detected (NotDetected) Parainfluenza 4 (PCR) Not Detected (NotDetected) RSV (RT-PCR) (Neg) RSV (PCR) Not Detected (NotDetected) Entero/Rhino (PCR) Not Detected (NotDetected) 12/17/21 Range/Units 10:45 WBC (4.8-10.8) K/ul RBC (3.93-5.22) M/uL Hgb (12.0-16.0) g/dl Hct (34.1-44.9) % MCV (80.0-100.0) fL MCH (25.0-34.0) pg MCHC (32.0-36.0) g/dL RDW Std Deviation (36.4-46.3) fL RDW Coeff of Carla (11.5-14.5) % Plt Count (130-400) K/uL MPV (9.4-12.3) fL Immature Gran % (Auto) % Neut % (Auto) % Lymph % (Auto) % Ritchie % (Auto) % Eos % (Auto) % Baso % (Auto) % Neut # (Auto) (1.4-6.5) K/uL Lymph # (Auto) (1.2-3.4) K/uL Ritchie # (Auto) (0.24-0.82) K/uL Eos # (Auto) (0-0.50) K/uL Baso # (Auto) (0-0.2) K/uL Immature Gran # (Auto) (0.00-0.02) K/uL Sodium (136-145) mmol/L Potassium (3.5-5.1) mmol/L Chloride (98-107) mmol/L Carbon Dioxide (21-32) mmol/L Anion Gap (3-11) BUN (6-23) mg/dl Creatinine (0.6-1.2) mg/dl Est Cr Clr Drug Dosing ml/min Est GFR ( Amer) ml/min Est GFR (Non-Af Amer) ml/min BUN/Creatinine Ratio (10-20) Glucose (70-99(Fasting)) mg/dl Estimat Average Glucose mg/dl Hemoglobin A1c (4.5-5.6) % Lactate (0.4-2.0) mmol/L Calcium (8.5-10.1) mg/dl Total Bilirubin (0.2-1.0) mg/dl Direct Bilirubin (0-0.2) mg/dl AST (13-39) U/L ALT (7-52) U/L Alkaline Phosphatase (34-104) U/L C-Reactive Protein (0-0.5) mg/dl Total Protein (6.0-8.3) gm/dl Albumin (3.4-5.0) gm/dl Globulin (2.5-4.0) gm/dl Albumin/Globulin Ratio (0.9-2) Triglycerides (0-150) mg/dl Cholesterol (0-200) mg/dl LDL Cholesterol, Calc mg/dl VLDL Cholesterol, Calc (0-30) mg/dl HDL Cholesterol mg/dl Cholesterol/HDL Ratio (0-5) Procalcitonin (0-0.5) ng/ml Adenovirus (PCR) (NotDetected) B. pertussis DNA (PCR) (NotDetected) B.parapertussis DNA PCR (NotDetected) C. pneumoniae DNA (PCR) (NotDetected) Coronavirus OC43 (PCR) (NotDetected) Coronavirus HKU1 (PCR) (NotDetected) Coronavirus 229E (PCR) (NotDetected) SARS-CoV-2 (PCR) NEGATIVE (Negative) Coronavirus NL63 (PCR) (NotDetected) Human Metapneumovir PCR (NotDetected) Influenza Type A (PCR) Negative (Neg) Influenza Type B (PCR) Negative (Neg) M. pneumoniae (PCR) (NotDetected) Parainfluenza 1 (PCR) (NotDetected) Parainfluenza 2 (PCR) (NotDetected) Parainfluenza 3 (PCR) (NotDetected) Parainfluenza 4 (PCR) (NotDetected) RSV (RT-PCR) Negative (Neg) RSV (PCR) (NotDetected) Entero/Rhino (PCR) (NotDetected) Medications Administered Current Inpatient Medications Acetaminophen (Acetaminophen 325 Mg Tab) 650 mg PO Q4H PRN PRN Reason: Moderate Pain Stop: 01/16/22 19:52 Albuterol (Albuterol Hfa 8 Gm Inhaler) 2 puffs INH QIDR PETER Stop: 01/16/22 19:52 Last Admin: 12/18/21 07:46 Dose: 2 puffs Enoxaparin Sodium (Enoxaparin Inj 40 Mg/0.4 Ml Syr) 40 mg SQ QAM [facility] Stop: 01/17/22 08:59 Guaifenesin (Guaifenesin 600 Mg Tabcr) 1,200 mg PO Q12 PETER Stop: 01/16/22 20:59 Last Admin: 12/18/21 09:11 Dose: 1,200 mg Doxycycline Hyclate 100 mg/ (Dextrose) 110 mls @ 50 mls/hr IV Q12H [facility] Stop: 12/24/21 14:44 Last Infusion: 12/18/21 05:39 Dose: Infused Remdesivir 100 mg/ Sodium (Chloride) 250 mls @ 250 mls/hr IV Q24H [facility]ER Stop: 12/21/21 12:59 Ceftriaxone Sodium 2,000 mg/ (Dextrose) 70 mls @ 140 mls/hr IV Q24H [facility] Stop: 12/24/21 14:59 Last Infusion: 12/17/21 16:09 Dose: Infused Dexamethasone 6 mg/ Syringe 1.5 mls @ 1 mls/min IV DAILY PETER Stop: 12/28/21 08:59 Last Admin: 12/18/21 09:12 Dose: 1 mls/min Ondansetron HCl (Ondansetron Inj 2 Mg/Ml 2 Ml Vial) 4 mg IV Q4H PRN PRN Reason: Nausea And Vomiting Stop: 01/16/22 19:52 (1) COPD (chronic obstructive pulmonary disease) COPD type: COPD with acute exacerbation Qualified Code(s): J44.1 - Chronic obstructive pulmonary disease with (acute) exacerbation (2) HTN (hypertension) Hypertension type: unspecified Qualified Code(s): I10 - Essential (primary) hypertension
[2021-12-18] MEDS: ENOXAPARIN INJ 40 MG/0.4 ML SYR SQ SCH (09:49)
[2021-12-18] MEDS: REMDESIVIR 100 MG in SODIUM CHLORIDE 0.9% 230 ML IV SCH (12:14)
[2021-12-18] MEDS: cefTRIAXone SODIUM 2,000 MG in DEXTROSE 5% 50 ML IV SCH (15:41)
[2021-12-19] MEDS: ALBUTEROL HFA 8 GM INHALER INH SCH ×4 (07:33→19:30)
[2021-12-19 07:37] LABS: Hematocrit (blood only) 45.9 % (34.1-44.9); Hemoglobin 15.2 g/dl (12.0-16.0); Mean Corpuscular Hgb Conc 33.1 g/dL (32.0-36.0); Mean Corpuscular Volume 93.5 fL (80.0-100.0); Mean Platelet Volume 11.2 fL (9.4-12.3); Platelet Count 192 K/uL (130-400); RDW Coefficient of Variation 14.1 % (11.5-14.5); Red Blood Count 4.91 M/uL (3.93-5.22); White Blood Count 7.55 K/ul (4.8-10.8)
--- NOTE | 2021-12-19 07:57 | Hospitalist Progress Note ---
Date of Service December 19, 2021 Assessment & Plan (1) Pneumonia: (2) COPD (chronic obstructive pulmonary disease): (3) Acute on chronic respiratory failure with hypoxia: Plan: - COVID-19 is highly suspected as the patient has been in close contact with a positive patient, unvaccinated, and is newly symptomatic. Initial test for covid with cefeid is negative, biofire negative Likely early pneumonia in the setting of her chronic COPD - Procalcitonin negative, lactic acid negative - CRP elevated - WBC wnl - CXR reviewed: showing emphysematous changes but no acute active disease in the chest - O2 sats are 87% in the ER without oxygen, improved to 94% with 2 L, patient does not wear any O2 at baseline - Remdesivir 200 mg IV x 1 then 100 mg daily thereafter, decadron 6 mg IV daily. Patient already received a dose of Decadron in the ER 10 mg IV. - 1 blood cultures - positive for Gram positive cocci - will give vancomycin for now - Started on ceftriaxone and doxycycline for pulm. coverage - will cont. - Guaifenesin, incentive spirometry, flutter valve - Patient uses albuterol inhaler several times daily at home, is not on any other inhaler therapy, consider pulmonary consultation for maintenance regimen of COPD, formal PFTs, ongoing care. (4) HTN (hypertension): Plan: - Patient is not on any antihypertensive medications, BP on admission 160/74, m onitor on telemetry -Order IV hydralazine as needed DVT PPx: -- teds, scds, Lovenox subcu 40 mg daily, increase chemical prophylaxis if positive for COVID CODE: DNR/DNI-discussed with the patient in depth over the phone. Dispo: From home, likely to remain in the hospital x 1-2 days. Admission and Anticipated Discharge Date Admission Date: December 17, 2021 Subjective Pt seen in follow up of hypoxia, shortness of breath, poss. COVID 19 pna, COPD Currently on RA Currently feels well, denies any fevers, chills, chest pain, shortness of breath, abdominal pain, nausea vomiting She is a current smoker and eager to go home (or at least outside for a bit) Today one blood cultx positive - discussed w/ the pt - she is ok to stay in the hospital She also reports she has not seen a physician in a long time, due to lack of insurance She believes now she has insurance, will need to be established with a physician Review of Systems Review of Systems: All systems reviewed & are unremarkable except as noted in Subjective Physical Exam Physical Exam: General: elderly F, chronically ill appearing, on RA HEENT: NC/AT, EOMI Chest: decreased breath sounds bilaterally , no wheezing,or rhonchi noted Heart: S1-S2 regular Abdomen: soft, + bowel sounds, nontender, nondistended Extremities: no LE edema, moves extremities Neuro: alert, awake and oriented x3.speech fluent, answering questions appropriately, moves extremities Skin: warm, dry, no rashes noted Results & Data Results & Data ([facility]) Vital Signs (Past 12 Hours) Vital Signs Temp Pulse Pulse Resp BP Pulse Ox O2 Del Method 12/19/21 07:33 70 16 94 Room Air 12/19/21 07:19 58 L 12/19/21 03:03 36.7 C 62 18 126/78 95 Nasal Cannula 12/18/21 23:27 60 12/18/21 23:12 36.7 C 65 18 135/78 95 Nasal Cannula 12/18/21 20:00 Nasal Cannula O2 Flow Rate 12/19/21 07:33 12/19/21 07:19 12/19/21 03:03 12/18/21 23:27 12/18/21 23:12 12/18/21 20:00 2 Laboratory Results 12/19/21 12/19/21 12/17/21 Range/Units 07:11 07:11 14:58 WBC 7.55 (4.8-10.8) K/ul RBC 4.91 (3.93-5.22) M/uL Hgb 15.2 (12.0-16.0) g/dl Hct 45.9 H (34.1-44.9) % MCV 93.5 (80.0-100.0) fL MCH 31.0 (25.0-34.0) pg MCHC 33.1 (32.0-36.0) g/dL RDW Std Deviation 49.0 H (36.4-46.3) fL RDW Coeff of Carla 14.1 (11.5-14.5) % Plt Count 192 (130-400) K/uL MPV 11.2 (9.4-12.3) fL Sodium 138 (136-145) mmol/L Potassium 4.0 (3.5-5.1) mmol/L Chloride 107 (98-107) mmol/L Carbon Dioxide 24 (21-32) mmol/L Anion Gap 7 (3-11) BUN 19 (6-23) mg/dl Creatinine 0.62 (0.6-1.2) mg/dl Est Cr Clr Drug Dosing 84.7 ml/min Est GFR ( Amer) 111.2 ml/min Est GFR (Non-Af Amer) 96.0 ml/min BUN/Creatinine Ratio 30.6 H (10-20) Glucose 79 (70-99(Fasting)) mg/dl Calcium 8.9 (8.5-10.1) mg/dl Phosphorus 3.5 (2.5-4.9) mg/dl Magnesium 1.8 (1.7-2.4) mg/dl Bld Cult ID Panel PCR PCR Panel Negative (NotDetected) Medications Administered Current Inpatient Medications Acetaminophen (Acetaminophen 325 Mg Tab) 650 mg PO Q4H PRN PRN Reason: Moderate Pain Stop: 01/16/22 19:52 Albuterol (Albuterol Hfa 8 Gm Inhaler) 2 puffs INH QIDR PETER Stop: 01/16/22 19:52 Last Admin: 12/19/21 07:33 Dose: 2 puffs Doxycycline Hyclate (Doxycycline Hyclate 100 Mg Cap) 100 mg PO BID [facility] Stop: 12/26/21 08:59 Enoxaparin Sodium (Enoxaparin Inj 40 Mg/0.4 Ml Syr) 40 mg SQ QAM [facility] Stop: 01/17/22 08:59 Last Admin: 12/18/21 09:49 Dose: Not Given Guaifenesin (Guaifenesin 600 Mg Tabcr) 1,200 mg PO Q12 [facility] Stop: 01/16/22 20:59 Last Admin: 12/18/21 20:20 Dose: 1,200 mg Remdesivir 100 mg/ Sodium (Chloride) 250 mls @ 250 mls/hr IV Q24H [facility] Stop: 12/21/21 12:59 Last Infusion: 12/18/21 13:24 Dose: Infused Ceftriaxone Sodium 2,000 mg/ (Dextrose) 70 mls @ 140 mls/hr IV Q24H [facility] Stop: 12/24/21 14:59 Last Infusion: 12/18/21 16:42 Dose: Infused Dexamethasone 6 mg/ Syringe 1.5 mls @ 1 mls/min IV DAILY [facility] Stop: 12/28/21 08:59 Last Admin: 12/18/21 09:12 Dose: 1 mls/min Ondansetron HCl (Ondansetron Inj 2 Mg/Ml 2 Ml Vial) 4 mg IV Q4H PRN PRN Reason: Nausea And Vomiting Stop: 01/16/22 19:52 (1) COPD (chronic obstructive pulmonary disease) COPD type: COPD with acute exacerbation Qualified Code(s): J44.1 - Chronic obstructive pulmonary disease with (acute) exacerbation (2) HTN (hypertension) Hypertension type: unspecified Qualified Code(s): I10 - Essential (primary) hypertension
[2021-12-19 08:15] LABS: BUN Creatinine Ratio 30.6 (10-20); Calcium 8.9 mg/dl (8.5-10.1); Creatinine Clr Calc Pharmacy 84.7 ml/min; Est GFR (African American) 111.2 ml/min; Magnesium 1.8 mg/dl (1.7-2.4); Phosphorus 3.5 mg/dl (2.5-4.9)
[2021-12-19] MEDS: ENOXAPARIN INJ 40 MG/0.4 ML SYR SQ SCH (09:12)
[2021-12-19] MEDS: DOXYCYCLINE HYCLATE 100 MG CAP PO SCH ×2 (09:13→20:49)
[2021-12-19] MEDS: guaiFENesin 600 MG TABCR PO SCH ×2 (09:13→20:49)
[2021-12-19] MEDS: dexAMETHasone 6 MG in SYRINGE 0 ML IV SCH (09:24)
[2021-12-19] MEDS: REMDESIVIR 100 MG in SODIUM CHLORIDE 0.9% 230 ML IV SCH (12:13)
[2021-12-19 12:22] LABS: A calco-baum cmplx NotReported Not Detected (NotDetected); Bact fragilis Not Reported Not Detected (NotDetected); C auris Not Reported Not Detected (NotDetected); Calbicans Not Reported Not Detected (NotDetected); Candida glabrata Not Reported Not Detected (NotDetected); Candida krusei Not Reported Not Detected (NotDetected); Cneoformans/gatti Not Reported Not Detected (NotDetected); Cparapsilosis Not Reported Not Detected (NotDetected); Ctropicalis Not Reported Not Detected (NotDetected); E cloacae compx Not Reported Not Detected (NotDetected); Efaecalis Not Reported Not Detected (NotDetected); Efaecium Not Reported Not Detected (NotDetected); Enterobacterales Not Reported Not Detected (NotDetected); Escherichia coli Not Reported Not Detected (NotDetected); H influenzae Not Reported Not Detected (NotDetected); K aerogenes Not Reported Not Detected (NotDetected); Koxytoca Not Reported Not Detected (NotDetected); Kpneumoniae grp Not Reported Not Detected (NotDetected); Lmonocyt Not Reported Not Detected (NotDetected); N meningitidis Not Reported Not Detected (NotDetected); P aeruginosa Not Reported Not Detected (NotDetected); Proteus spp Not Reported Not Detected (NotDetected); Salmonella spp Not Reported Not Detected (NotDetected); Smarcescens Not Reported Not Detected (NotDetected); Staph lugdunensis Not Reported Not Detected (NotDetected); Staph spp. Not Reported Not Detected (NotDetected); Staphaureus Not Reported Not Detected (NotDetected); Staphepi Not Reported Not Detected (NotDetected); Stenmaltophilia Not Reported Not Detected (NotDetected); Strep agal(GrpB) Not Reported Not Detected (NotDetected); Strep pneum Not Reported Not Detected (NotDetected); Strep pyog (GrpA) Not Reported Not Detected (NotDetected); Strep spp Not Reported Not Detected (NotDetected)
[2021-12-19] MEDS ORDERED: VANCOMYCIN CONSULT ACTIVE PRN (13:24)
[2021-12-19] MEDS ORDERED: VANCOMYCIN HCL 1,000 MG in SODIUM CHLORIDE 0.9% 250 ML IV STA (13:24)
[2021-12-19] MEDS ORDERED: VANCOMYCIN HCL 1,500 MG in SODIUM CHLORIDE 0.9% 500 ML IV STA (13:37)
[2021-12-19] MEDS: cefTRIAXone SODIUM 2,000 MG in DEXTROSE 5% 50 ML IV SCH (14:57)
--- NOTE | 2021-12-19 16:39 | Pharmacy Report ---
Pharmacy PK ABX Note - Date of Service December 19, 2021 - Assessment and Plan Assessment * 61 year old F receiving ceftriaxone, doxycycline, and vancomycin for treatment of PNA and possible GPC bacteremia. * Pertinent microbiologic data includes: MRSA Nasal Swab pending, 1 of 2 blood cultures from 12/17 growing GPC (BCID2 panel negative). Possible contaminant. Blood cultures obtained again. Plan Vancomycin * Loading dose: 1500 mg IV x 1 * Maintenance dose: 1000 mg IV every 12 hours * Regimen is predicted to achieve target AUC/EMILY of 400-600 mg/L.hr * Will order level for 12/21 if therapy continues past tomorrow Pharmacy will continue to follow and will adjust dose/frequency as necessary. Thank you. Pharmacy has transitioned to AUC monitoring for vancomycin. AUC/EMILY is the preferred PK/PD target and is associated with decreased risk of nephrotoxicity compared to traditional trough targets.
[2021-12-19] MEDS: NICOTINE 14 MG/24 HR PATCH TD SCH (18:16)
[2021-12-20] MEDS ORDERED: VANCOMYCIN HCL 1,000 MG in SODIUM CHLORIDE 0.9% 250 ML IV SCH (02:00)
[2021-12-20 07:19] LABS: Hematocrit (blood only) 45.6 % (34.1-44.9); Hemoglobin 15.4 g/dl (12.0-16.0); Mean Corpuscular Hemoglobin 31.3 pg (25.0-34.0); Mean Corpuscular Hgb Conc 33.8 g/dL (32.0-36.0); Mean Corpuscular Volume 92.7 fL (80.0-100.0); Mean Platelet Volume 11.6 fL (9.4-12.3); Platelet Count 220 K/uL (130-400); RDW Coefficient of Variation 13.9 % (11.5-14.5); RDW Standard Deviation 47.3 fL (36.4-46.3); Red Blood Count 4.92 M/uL (3.93-5.22); White Blood Count 7.84 K/ul (4.8-10.8)
[2021-12-20] MEDS: ALBUTEROL HFA 8 GM INHALER INH SCH ×2 (07:25→11:05)
[2021-12-20 07:39] LABS: BUN Creatinine Ratio 27.9 (10-20); Calcium 8.5 mg/dl (8.5-10.1); Creatinine Clr Calc Pharmacy 86.1 ml/min; Est GFR (African American) 111.8 ml/min; Est GFR (Non-African American) 96.5 ml/min; Magnesium 1.7 mg/dl (1.7-2.4); Potassium 3.7 mmol/L (3.5-5.1)
--- NOTE | 2021-12-20 07:50 | Hospitalist Progress Note ---
Date of Service December 20, 2021 Assessment & Plan (1) Pneumonia: (2) COPD (chronic obstructive pulmonary disease): (3) Acute on chronic respiratory failure with hypoxia: Plan: - COVID-19 is highly suspected as the patient has been in close contact with a positive patient, unvaccinated, and is newly symptomatic. Initial test for covid with cefeid is negative, biofire negative Likely early pneumonia in the setting of her chronic COPD - Procalcitonin negative, lactic acid negative - CRP elevated - WBC wnl - CXR reviewed: showing emphysematous changes but no acute active disease in the chest - O2 sats are 87% in the ER without oxygen, improved to 94% with 2 L, patient does not wear any O2 at baseline - Remdesivir 200 mg IV x 1 then 100 mg daily thereafter, decadron 6 mg IV daily. Patient already received a dose of Decadron in the ER 10 mg IV. - Started on ceftriaxone and doxycycline for pulm. coverage - will cont. - Guaifenesin, incentive spirometry, flutter valve - Patient uses albuterol inhaler several times daily at home, is not on any othe r inhaler therapy, consider pulmonary consultation for maintenance regimen of COPD, formal PFTs, ongoing care. 12/19 -patient is currently on room air, breathing comfortably. She is eager for discharge. Denies any complaints. Discussed discharge on Doxy and prednisone. Patient is in agreement. Discussed following final cultures and establish care with PCP, patient in agreement to see PCP next week. She also reports that nicotine patch is helping. Counseled on tobacco cessation. Provided with 1 800 quit now number, free smoking cessation line. ? bacteremia - likely contaminant - 1 blood culture - positive for Gram positive cocci -Repeat blood cultures obtained, so far negative -Echo obtained, no vegetations seen on transthoracic echo -Patient received vancomycin empirically we will stop now Blood culture PCR negative -Discussed with microbiology, most likely contaminant -Will follow final cultures (4) HTN (hypertension): Plan: - Patient is not on any antihypertensive medications, BP on admission 160/74, monitor on telemetry -Order IV hydralazine as needed -Started lisinopril 2.5 mg daily -Follow-up with PCP DVT PPx: -- teds, scds, Lovenox subcu 40 mg daily CODE: DNR/DNI-discussed with the patient in depth over the phone. Dispo: Plan to DC home Admission and Anticipated Discharge Date Admission Date: December 17, 2021 Subjective Pt seen in follow up of hypoxia, shortness of breath, poss. COVID 19 pna, COPD Currently on RA Currently feels well, denies any fevers, chills, chest pain, shortness of breath, abdominal pain, nausea vomiting She is a current smoker and eager to go home Reports that Nicotine patch is helping Yesterday one blood cultx positive - GPC, repeat cultx negative so far. PCR negative. Discussed w/ microbiology - likely contaminant. She also reports she has not seen a physician in a long time, due to lack of insurance She believes now she has insurance, will need to be established with a PCP Review of Systems Review of Systems: All systems reviewed & are unremarkable except as noted in Subjective Physical Exam Physical Exam: General: elderly F, chronically ill appearing, on RA HEENT: NC/AT, EOMI Chest: decreased breath sounds bilaterally , no wheezing,or rhonchi noted Heart: S1-S2 regular Abdomen: soft, + bowel sounds, nontender, nondistended Extremities: no LE edema, moves extremities Neuro: alert, awake and oriented x3.speech fluent, answering questions appropriately, moves extremities Skin: warm, dry, no rashes noted Results & Data Results & Data ([facility]) Vital Signs (Past 12 Hours) Vital Signs Temp Pulse Pulse Resp BP BP Pulse Ox 12/20/21 07:37 36.5 C 68 20 167/108 H 173/103 H 92 12/20/21 07:28 60 12/20/21 07:25 66 18 93 12/20/21 02:46 36.6 C 68 18 159/92 H 94 12/20/21 00:00 88 12/19/21 23:10 36.6 C 78 18 145/84 H 94 O2 Del Method 12/20/21 07:37 Room Air 12/20/21 07:28 12/20/21 07:25 Room Air 12/20/21 02:46 Room Air 12/20/21 00:00 12/19/21 23:10 Room Air Laboratory Results 12/20/21 12/20/21 12/20/21 Range/Units 06:52 06:52 06:52 WBC 7.84 (4.8-10.8) K/ul RBC 4.92 (3.93-5.22) M/uL Hgb 15.4 (12.0-16.0) g/dl Hct 45.6 H (34.1-44.9) % MCV 92.7 (80.0-100.0) fL MCH 31.3 (25.0-34.0) pg MCHC 33.8 (32.0-36.0) g/dL RDW Std Deviation 47.3 H (36.4-46.3) fL RDW Coeff of Carla 13.9 (11.5-14.5) % Plt Count 220 (130-400) K/uL MPV 11.6 (9.4-12.3) fL Sodium 138 (136-145) mmol/L Potassium 3.7 (3.5-5.1) mmol/L Chloride 108 H (98-107) mmol/L Carbon Dioxide 23 (21-32) mmol/L Anion Gap 7 (3-11) BUN 17 (6-23) mg/dl Creatinine 0.61 (0.6-1.2) mg/dl Est Cr Clr Drug Dosing 86.1 ml/min Est GFR ( Amer) 111.8 ml/min Est GFR (Non-Af Amer) 96.5 ml/min BUN/Creatinine Ratio 27.9 H (10-20) Glucose 80 (70-99(Fasting)) mg/dl Calcium 8.5 (8.5-10.1) mg/dl Phosphorus 3.0 (2.5-4.9) mg/dl Magnesium 1.7 (1.7-2.4) mg/dl Procalcitonin Pending Nasal Screen MRSA (PCR) (Negative) Bld Cult ID Panel PCR (NotDetected) 12/19/21 12/19/21 12/17/21 Range/Units 17:16 07:11 14:58 WBC (4.8-10.8) K/ul RBC (3.93-5.22) M/uL Hgb (12.0-16.0) g/dl Hct (34.1-44.9) % MCV (80.0-100.0) fL MCH (25.0-34.0) pg MCHC (32.0-36.0) g/dL RDW Std Deviation (36.4-46.3) fL RDW Coeff of Carla (11.5-14.5) % Plt Count (130-400) K/uL MPV (9.4-12.3) fL Sodium 138 (136-145) mmol/L Potassium 4.0 (3.5-5.1) mmol/L Chloride 107 (98-107) mmol/L Carbon Dioxide 24 (21-32) mmol/L Anion Gap 7 (3-11) BUN 19 (6-23) mg/dl Creatinine 0.62 (0.6-1.2) mg/dl Est Cr Clr Drug Dosing 84.7 ml/min Est GFR ( Amer) 111.2 ml/min Est GFR (Non-Af Amer) 96.0 ml/min BUN/Creatinine Ratio 30.6 H (10-20) Glucose 79 (70-99(Fasting)) mg/dl Calcium 8.9 (8.5-10.1) mg/dl Phosphorus 3.5 (2.5-4.9) mg/dl Magnesium 1.8 (1.7-2.4) mg/dl Procalcitonin Nasal Screen MRSA (PCR) Negative (Negative) Bld Cult ID Panel PCR PCR Panel Negative (NotDetected) Medications Administered Current Inpatient Medications Acetaminophen (Acetaminophen 325 Mg Tab) 650 mg PO Q4H PRN PRN Reason: Moderate Pain Stop: 01/16/22 19:52 Albuterol (Albuterol Hfa 8 Gm Inhaler) 2 puffs INH QIDR PETER Stop: 01/16/22 19:52 Last Admin: 12/20/21 07:25 Dose: 2 puffs Doxycycline Hyclate (Doxycycline Hyclate 100 Mg Cap) 100 mg PO BID PETER Stop: 12/26/21 08:59 Last Admin: 12/19/21 20:49 Dose: 100 mg Enoxaparin Sodium (Enoxaparin Inj 40 Mg/0.4 Ml Syr) 40 mg SQ QAM PETER Stop: 01/17/22 08:59 Last Admin: 12/19/21 09:12 Dose: Not Given Guaifenesin (Guaifenesin 600 Mg Tabcr) 1,200 mg PO Q12 [facility]ER Stop: 01/16/22 20:59 Last Admin: 12/19/21 20:49 Dose: 1,200 mg Remdesivir 100 mg/ Sodium (Chloride) 250 mls @ 250 mls/hr IV Q24H [facility] Stop: 12/21/21 12:59 Last Infusion: 12/19/21 13:22 Dose: Infused Ceftriaxone Sodium 2,000 mg/ (Dextrose) 70 mls @ 140 mls/hr IV Q24H [facility] Stop: 12/24/21 14:59 Last Infusion: 12/19/21 15:33 Dose: Infused Dexamethasone 6 mg/ Syringe 1.5 mls @ 1 mls/min IV DAILY [facility] Stop: 12/28/21 08:59 Last Admin: 12/19/21 09:24 Dose: 1 mls/min Vancomycin HCl 1,000 mg/ (Sodium Chloride) 270 mls @ 200 mls/hr IV Q12H [facility]; Protocol Stop: 12/27/21 01:59 Last Infusion: 12/20/21 04:37 Dose: Infused Lisinopril (Lisinopril 2.5 Mg Tab) 2.5 mg PO QAM [facility] Stop: 01/19/22 08:59 Magnesium Oxide (Magnesium Oxide 400 Mg Tab) 400 mg PO QAM [facility] Stop: 01/19/22 08:59 Miscellaneous (Remove Nicoderm Patch) 1 each N/A DAILY@0859 [facility] Stop: 01/18/22 16:59 Last Admin: 12/19/21 20:50 Dose: 1 each Miscellaneous Information (Vancomycin Consult Active) 1 each N/A UD PRN PRN Reason: Consult Stop: 01/18/22 13:23 Nicotine (Nicotine 14 Mg/24 Hr Patch) 14 mg TD QAM [facility] Stop: 01/18/22 16:59 Last Admin: 12/19/21 18:16 Dose: 14 mg Ondansetron HCl (Ondansetron Inj 2 Mg/Ml 2 Ml Vial) 4 mg IV Q4H PRN PRN Reason: Nausea And Vomiting Stop: 01/16/22 19:52 (1) COPD (chronic obstructive pulmonary disease) COPD type: COPD with acute exacerbation Qualified Code(s): J44.1 - Chronic obstructive pulmonary disease with (acute) exacerbation (2) HTN (hypertension) Hypertension type: unspecified Qualified Code(s): I10 - Essential (primary) hypertension
[2021-12-20] MEDS ORDERED: MAGNESIUM OXIDE 400 MG TAB PO SCH (09:00)
[2021-12-20] MEDS ORDERED: lisinopril 2.5 MG TAB PO SCH (09:00)
[2021-12-20] MEDS: NICOTINE 14 MG/24 HR PATCH TD SCH (09:47)
[2021-12-20] MEDS: ENOXAPARIN INJ 40 MG/0.4 ML SYR SQ SCH (09:49)
[2021-12-20] MEDS: guaiFENesin 600 MG TABCR PO SCH (09:49)
[2021-12-20] MEDS: DOXYCYCLINE HYCLATE 100 MG CAP PO SCH (09:49)
[2021-12-20] MEDS: dexAMETHasone 6 MG in SYRINGE 0 ML IV SCH (09:50)
[2021-12-20] MEDS: REMDESIVIR 100 MG in SODIUM CHLORIDE 0.9% 230 ML IV SCH (12:00)
--- NOTE | 2021-12-20 12:34 | Discharge Summary ---
Date of Service December 20, 2021 Admission HPI Per Admitting Provider This is a 61 yo F with PMHx of COPD, emphysema, HTN, who presents with acute onset of flu like symptoms including, fever, chills, cough and shortness of breath which began overnight. She was found to be hypoxic in the 80s when she presented to the ER. Pt also came with her boyfriend to the ER, who is also a patient in a different room, and he tested positive for COVID. Ailyn tests negative for covid today. Early this morning her fever was 101.7, and took one tylenol at home at 3am. She also admits to cough with green sputum which has been ongoing x 1 month, worse today though, admits to sinus congestion. She has chest heaviness and feels that this happens routinely at bedtime, it is no different today. She routinely smokes 1ppd since was 13 years old, but has never required oxygen at baseline. Reports living with her boyfriend, Jonatan Gonzalez. They have been around each other and sharing common spaces, but do not sleep in the same bedroom. She notes he has had similar complaints for a few days. Not vaccinated against covid. She uses an albuterol inhaler as a rescue inhaler and normally uses it daily but not today. Admission Exam Per Admitting Provider Moderate shortness of breath at rest Hemodynamically stable with a temperature of 38 C Chestdecreased breath sounds bilaterally with coarse crackles bilaterally HeartS1-S2 regular Abdomenbenign Extremitiesnegative for any edema CNSalert, awake and oriented x3. No focal sensory or no motor deficit appreciated Principal Diagnosis Acute hypoxic respiratory failure, COPD exacerbation, COVID-19 exposure Discharge Exam General: elderly F, chronically ill appearing, on RA HEENT: NC/AT, EOMI Chest: decreased breath sounds bilaterally , no wheezing,or rhonchi noted Heart: S1-S2 regular Abdomen: soft, + bowel sounds, nontender, nondistended Extremities: no LE edema, moves extremities Neuro: alert, awake and oriented x3.speech fluent, answering questions appropriately, moves extremities Skin: warm, dry, no rashes noted Discharge Data Allergies Allergy/AdvReac Type Severity Reaction Status Date / Time No Known Allergies Allergy Mild Verified 12/17/21 12:17 Consultations 12/17/21 13:22 ED Decision to Admit Stat Hospital Course (1) Pneumonia: (2) COPD (chronic obstructive pulmonary disease): (3) Acute on chronic respiratory failure with hypoxia: - COVID-19 is highly suspected as the patient has been in close contact with a p ositive patient, unvaccinated, and is newly symptomatic. Initial test for covid with cefeid is negative, biofire negative Likely early pneumonia in the setting of her chronic COPD - Procalcitonin negative, lactic acid negative - CRP elevated - WBC wnl - CXR reviewed: showing emphysematous changes but no acute active disease in the chest - O2 sats are 87% in the ER without oxygen, improved to 94% with 2 L, patient does not wear any O2 at baseline - Remdesivir 200 mg IV x 1 then 100 mg daily thereafter, decadron 6 mg IV daily. Patient already received a dose of Decadron in the ER 10 mg IV. - Started on ceftriaxone and doxycycline for pulm. coverage - will cont. - Guaifenesin, incentive spirometry, flutter valve - Patient uses albuterol inhaler several times daily at home, is not on any other inhaler therapy, consider pulmonary consultation for maintenance regimen of COPD, formal PFTs, ongoing care. 12/19 -patient is currently on room air, breathing comfortably. She is eager for discharge. Denies any complaints. Discussed discharge on Doxy and prednisone. Patient is in agreement. Discussed following final cultures and establish care with PCP, patient in agreement to see PCP next week. She also reports that nicotine patch is helping. Counseled on tobacco cessation. Provided with 1 800 quit now number, free smoking cessation line. ? bacteremia - likely contaminant - 1 blood culture - positive for Gram positive cocci -Repeat blood cultures obtained, so far negative -Echo obtained, no vegetations seen on transthoracic echo -Patient received vancomycin empirically we will stop now Blood culture PCR negative -Discussed with microbiology, most likely contaminant -Will follow final cultures (4) HTN (hypertension): - Patient is not on any antihypertensive medications, BP on admission 160/74, monitor on telemetry -Order IV hydralazine as needed -Started lisinopril 2.5 mg daily -Follow-up with PCP Dispo: Plan to DC home Total Time Total Time Spent Total Time Spent (In Minutes): 40 Discharge Plan Discharge Items Patient Disposition: Home - Self-Care Reason For Visit: ACUTE HYPOXIC RESP FAILURE Discharge Diagnosis: Acute hypoxic respiratory failure, COPD exacerbation, COVID-19 exposure Activity: Per Instructions section Non-emergency contact: Primary Care Provider Call non-emergency contact if: you have any medication questions and your symptoms worsen Follow-up/Referrals: PCP,NO [Primary Care Provider] - Diet: Heart Healthy [place] Attending Provider Instructions: You will need to follow-up with a primary care provider, we will help you arrange your appointment. Finish treatment with doxycycline and prednisone, as prescribed. While hospitalized, your blood pressure has been elevated, start taking jarrod nopril as prescribed. If you can, monitor your blood pressure at home, and record your numbers. Discuss your numbers with your healthcare provider, as your blood pressure medications may need further adjustment. It is recommended that you completely abstain from tobacco use. Recommend to connect with [employer], free smoking cessation line. [employer] Provider Instructions: Home Isolation COVID-19 Instructions The following information about Home Isolation is from the CDC Website: https://www.cdc.gov/coronavirus/2019-ncov/hcp/wqwmvbjz-estzdxv-xoylrk.html Stay home except to get medical care People who are mildly ill with COVID-19 are able to isolate at home during their illness. You should restrict activities outside your home, except for getting medical care. Do not go to work, school, or public areas. Avoid using public transportation, ride-sharing, or taxis. Separate yourself from other people and animals in your home People: As much as possible, you should stay in a specific room and away from other people in your home. Also, you should use a separate bathroom, if available. Animals: You should restrict contact with pets and other animals while you are sick with COVID-19, just like you would around other people. Although there have not been reports of pets or other animals becoming sick with COVID-19, it is still recommended that people sick with COVID-19 limit contact with animals until more information is known about the virus. When possible, have another member of your household care for your animals while you are sick. If you are sick with COVID-19, avoid contact with your pet, including petting, snuggling, being kissed or licked, and sharing food. If you must care for your pet or be around animals while you are sick, wash your hands before and after you interact with pets and wear a face mask. Call ahead before visiting your doctor If you have a medical appointment, call the healthcare provider and tell them that you have or may have COVID-19. This will help the healthcare providers office take steps to keep other people from getting infected or exposed. Wear a face mask You should wear a face mask when you are around other people (e.g., sharing a room or vehicle) or pets and before you enter a healthcare providers office. If you are not able to wear a face mask (for example, because it causes trouble breathing), then people who live with you should not stay in the same room with you, or they should wear a face mask if they enter your room. Cover your coughs and sneezes Cover your mouth and nose with a tissue when you cough or sneeze. Throw used tissues in a lined trash can. Immediately wash your hands with soap and water for at least 20 seconds or, if soap and water are not available, clean your hands with an alcohol-based hand caser in that contains at least 60% alcohol. Clean your hands often Wash your hands often with soap and water for at least 20 seconds, especially after blowing your nose, coughing, or sneezing; going to the bathroom; and before eating or preparing food. If soap and water are not readily available, use an alcohol-based hand caser in with at least 60% alcohol, covering all surfaces of your hands and rubbing them together until they feel dry. Soap and water are the best option if hands are visibly dirty. Avoid touching your eyes, nose, and mouth with unwashed hands. Avoid sharing personal household items You should not share dishes, drinking glasses, cups, eating utensils, towels, or bedding with other people or pets in your home. After using these items, they should be washed thoroughly with soap and water. Clean all high-touch surfaces everyday High touch surfaces include counters, tabletops, doorknobs, bathroom fixtures, toilets, phones, keyboards, tablets, and bedside tables. Also, clean any surfaces that may have blood, stool, or body fluids on them. Use a household cleaning spray or wipe, according to the label instructions. Labels contain instructions for safe and effective use of the cleaning product including precautions you should take when applying the product, such as wearing gloves and making sure you have good ventilation during use of the product. Monitor your symptoms Seek prompt medical attention if your illness is worsening (e.g., difficulty breathing).Beforeseeking care, call your healthcare provider and tell them that you have, or are being evaluated for, COVID-19. Put on a face mask before you enter the facility. These steps will help the healthcare providers office to keep other people in the office or waiting room from getting infected or exposed. Ask your healthcare provider to call the local or state health department. Persons who are placed under active monitoring or facilitated self- monitoring should follow instructions provided by their local health department or occupational health professionals, as appropriate. When working with your local health department check their available hours. If you have a medical emergency and need to call 911, notify the dispatch personnel that you have, or are being evaluated for COVID-19. If possible, put on a face mask before emergency medical services arrive. Discontinuing home isolation Patients with confirmed COVID-19 should remain under home isolation precautions until the risk of secondary transmission to others is thought to be low. The decision to discontinue home isolation precautions should be made on a [id number] basis, in consultation with healthcare providers and state and local health departments. Coronavirus disease 2019 (COVID-19) is a virus that causes a respiratory illness. It is caused by a coronavirus called 2019 novel coronavirus (2019- nCoV). There are many types of coronavirus. Coronaviruses are a very common cause of bronchitis. They may sometimes cause lung infection(pneumonia). Symptoms can range from mild to severe respiratory illness. These viruses are also foundin some animals. COVID-19 was first found in people in [facility], in late 2019. In 2020, several cases of COVID-19 have been confirmed in the [place] Public health officials are working to find the source. How the virus spreads is not yet fully known. It may be spread through droplets of fluid that a person coughs or sneezes into the air. It may be spread if you touch a surface with virus on it, such as a handle or object, and then touch your mouth. What are the symptoms of COVID-19? Some people have no symptoms or mild symptoms. Symptoms may appear 2 to 14 days after contact with the virus. Symptoms can include: Fever Coughing Trouble breathing What are possible complications from COVID-19? In many cases, this virus can cause infection (pneumonia) in both lungs. In some cases, this can cause . How is COVID-19 diagnosed? Your healthcare provider will ask about your symptoms. He or she will also ask about your recent travel and contact with sick people. Testing for the virus is only done through the CDC. If yourhealthcare provider thinks you may have COVID- 19, he or she will work with your local health department and the CDC on testing. Follow all instructions from your healthcare provider. COVID-19 is diagnosed by: Nasal and throat swab. A cotton-tipped swab is wiped inside your nose or throat. This is done to check for viruses in your nasal mucus. Sputum culture. A small sample of mucus coughed from your lungs (sputum) is collected if you have a cough. It is checked for the virus. How is COVID-19 treated? There is currently no medicine to treat the virus. Treatment is done to help your body while it fights the virus. This is known as supportive care. Supportive care may include: Pain medicine. These include acetaminophen and ibuprofen. They are used to help ease pain and reduce fever. Bed rest. This helps your body fight the illness. For severe illness, you may need to stay in the hospital. Care during severe illness may include: IV (intravenous) fluids.These are given through a vein to help keep your body hydrated. Oxygen. Supplemental oxygen or ventilation with a breathing machine (ventilator) may be given. This is done to keep enough oxygen in your body. Are you at risk for COVID-19? If youve been to a place where people have been sick with this virus, you are at risk for infection. You are at risk if you: Recently traveled to an affected area Had contact with a sick person who recently traveled to this area Had contact with a person who was diagnosed with COVID-19 How can COVID-19 be prevented? There is no vaccine yet. The best prevention is to not have contact with the virus. The CDC advises that people should not travel to areas where there are COVID-19 outbreaks right now for any reason that is not urgent. To help prevent spreading the infection, wash your hands often, or use an alcohol-basedhand caser in. If you are in an area with COVID-19: Wash your hands often. Or use an alcohol-based hand caser in often. Only touch your eyes, nose, or mouth with clean hands. Dont have contact with people who are sick. Follow local instructions about being in public. For example, you may be told to not use public transport for a period of time. Stay away from markets that have live or animals. Wash your hands after touching any animals. Don't touch animals that may be sick. Dont share eating or drinking tools with sick people. Dont kiss someone who is sick. Clean surfaces often with disinfectant. If you were in an area with COVID-19 in the last 14 days: Call your healthcare provider. He or she can talk with local health staff to see what action may be needed. Follow all instructions from your provider. Take your temperature every morning and evening for at least 14 days. This is to check for fever. Keep a record of the readings. Keep watch for symptoms of the virus. Tell your provider right away if you have symptoms. If you were in an area with COVID-19 and have a fever or other symptoms: Dont panic. Keep in mind that other illnesses can cause similar symptoms. Stay away from work, school, and public places. Limit physical contact with family members. Don't kiss anyone or share eating or drinking utensils. Clean surfaces you touch with disinfectant. This is to help prevent the virus from spreading. Call your healthcare provider. Explain that you have been exposed to COVID-19 and have symptoms. Do this before going to any hospital. Wait for instructions. Keep in mind that healthcare staff may wear protective equipment such as masks, gowns, gloves, and eye protection. You may be put in a separate room. This is to prevent the possible virus from spreading. Tell the healthcare staff about recent travel. This includes local travel on public transport. Staff may need to find other people you have been in contact with. Follow all instructions the healthcare staff give you. If you have been diagnosed with COVID-19 Follow all instructions from your healthcare provider. Dont leave your home, except to get medical care. Call your healthcare providers office before going. They can prepare and give you instructions. This will help prevent the virus from spreading. Dont go to work, school, or public areas. Dont use public transport or taxis. Stay away from other people in your home. Have them wear face masks around you. Dont share household items or food. Wear a face mask if you can. This includes at home or in a medical facility. Cover your face with a tissue when you cough or sneeze. Throw the tissue away. Wash your hands. Wash your hands often. Caregivers should: Follow all instructions from healthcare staff. Wear a face mask and protective clothing as advised. Wash hands often. Keep track of the sick persons symptoms. Clean surfaces, fabrics, and laundry thoroughly. Keep other people away from the sick person. When to call your healthcare provider Call your healthcare provider: If youve recently traveled and have symptoms If you have been diagnosed with COVID-19 and your symptoms are worse To learn more To find out more about COVID-19, visit the CDC website at www.cdc.gov/coronavirus/2019-ncov/index.html. 1290-[address] [employer] [place] [address]. All rights reserved. This information is not intended as a substitute for professional medical care. Always follow your healthcare professional's instructions. This information has been adapted from [employer] Pending Studies at Discharge: Yes Studies:: final blood cultures, final sputum culture Stand-Alone Forms: My [facility] [place], Smoking Cessation Medications and DC Order Prescriptions: New doxycycline hyclate 100 mg Capsule 100 mg PO BID 4 Days Qty: 8 0RF lisinopril 2.5 mg Tablet 2.5 mg PO QAM Qty: 30 0RF guaifenesin [Mucinex] 600 mg Tablet Extended Release 12hr 1,200 mg PO Q12 5 Days Qty: 20 0RF albuterol sulfate 90 mcg/actuation HFA aerosol inhaler 1 inh inhalation Q6H PRN (Reason: shortness of breath or wheezing) Qty: 8.5 0RF prednisone 20 mg tablet 40 mg PO DAILY 4 Days Qty: 8 0RF nicotine 14 mg/24 hr patch 24 hour 1 patch transdermal DAILY Qty: 14 0RF Continued albuterol 90 mcg/actuation Aerosol 90 mcg INHALATION Q6H PRN (Reason: Shortness Of Breath) Discharge Orders: Discharge Order (Routine); Ordered 12/20/21 Ordered By: Gordo Dailey Admission Data Admit Date/Time: 12/17/21 13:57 Attending Provider: Gordo Dailey Admit Provider: Dominique Koenig Primary Care Provider: PCP,CODY Other Providers: Dominique Koenig Other Interventions: Discharge Summary Assessment (RN) Last Done: 12/20/21 12:05
== END 2021-12-20 13:38 | disposition home or self-care (01) | DRG 193 ==
LOC: ED 09:44 → SUATTDRO 13:57 → EDINP 13:57 → 2S 18:57

== ENCOUNTER 2023-09-16 21:27 | Inpatient (IN) ==
[2023-09-16 22:28] LABS: Basophils # (auto) 0.06 K/uL (0.00-0.20); Basophils % (auto) 0.4 %; Eosinophils # (auto) 0.17 K/uL (0.00-0.50); Eosinophils % (auto) 1.2 %; Hematocrit (blood only) 47.8 % (37.0-47.0); Hemoglobin 16.3 g/dl (12.0-16.0); Immature Granulocytes # (auto) 0.05 K/uL (0.01-0.20); Immature Granulocytes % (auto) 0.4 %; Lymphocytes % (auto) 20.4 %; Mean Corpuscular Hemoglobin 32.2 pg (25.0-34.0); Mean Corpuscular Hgb Conc 34.1 g/dL (32.0-36.0); Mean Corpuscular Volume 94.5 fL (80.0-100.0); Mean Platelet Volume 11.5 fL (9.4-12.4); Monocytes # (auto) 1.77 K/uL (0.11-0.59); Monocytes % (auto) 12.5 %; Neutrophils # (auto) 9.26 K/uL (1.40-6.50); Neutrophils % (auto) 65.1 %; Platelet Count 243 K/uL (130-400); RDW Coefficient of Variation 13.3 % (11.5-14.5); RDW Standard Deviation 46.7 fL (36.4-46.3); Red Blood Count 5.06 M/uL (4.20-5.40); White Blood Count 14.21 K/ul (4.8-10.8)
[2023-09-16 22:37] LABS: BUN Creatinine Ratio 20.4 (10-20); Bilirubin,Total 0.6 mg/dl (0.2-1.0); Calcium 9.5 mg/dl (8.6-10.3); Creatinine Clr Calc Pharmacy 96.4 ml/min; Est GFR (African American) 115.6 ml/min; Est GFR (Non-African American) 99.7 ml/min; Globulin 3.9 gm/dl (2.5-4.0); Magnesium 1.6 mg/dl (1.7-2.4); Potassium 3.4 mmol/L (3.5-5.1); Total Protein 7.9 gm/dl (6.0-8.3)
[2023-09-16 22:44] LABS: Troponin I High Sensitivity 18.4 pg/ml (0-14)
[2023-09-16 22:48] LABS: INR 0.9 (0.9-1.1); Partial Thromboplastin Ratio 1.1; Partial Thromboplastin Time 29 Seconds (21-31); Prothrombin Time 10.2 Seconds (9.0-12.0)
[2023-09-16 23:05] LABS: Adenovirus PCR Not Detected (NotDetected); Bordetella parapertussis PCR Not Detected (NotDetected); Bordetella pertussis PCR Not Detected (NotDetected); Chlamydia pneumoniae PCR Not Detected (NotDetected); Coronavirus 229E PCR Not Detected (NotDetected); Coronavirus CoV-2 (COVID19)PCR Not Detected (NotDetected); Coronavirus HKU1 PCR Not Detected (NotDetected); Coronavirus NL63 PCR Not Detected (NotDetected); Coronavirus OC43PCR Not Detected (NotDetected); Human Metapneumovirus PCR Not Detected (NotDetected); Influenza A PCR Not Detected (NotDetected); Influenza B PCR Not Detected (NotDetected); Mycoplasma pneumoniae PCR Not Detected (NotDetected); Parainfluenza Virus 1 PCR Not Detected (NotDetected); Parainfluenza Virus 2 PCR Not Detected (NotDetected); Parainfluenza Virus 3 PCR Not Detected (NotDetected); Parainfluenza Virus 4 PCR Not Detected (NotDetected); Respiratory Syncytial VirusPCR Not Detected (NotDetected); Rhinovirus/Enterovirus PCR Not Detected (NotDetected)
[2023-09-16] MEDS: OPTIRAY 320 125ml IV ONE (23:34)
[2023-09-17] MEDS: MAGNESIUM SULFATE / D5W 1 GM/100 ML BAG IV STA ×2 (00:18→03:32)
[2023-09-17] MEDS: OPTIRAY 320 100ml IV ONE (00:22)
--- NOTE | 2023-09-17 00:27 | CT Scan Report ---
Exam(s): CTA CHEST IV Amt: 119 cc opti 320 EXAM: CT Angiography Chest With Intravenous Contrast CLINICAL HISTORY: Reason for exam: PE. TECHNIQUE: Axial computed tomographic angiography images of the chest with intravenous contrast. CTDI is 17.79 mGy and DLP is 561.16 mGy-cm. Automated exposure control was utilized for the study. A dose lowering technique was utilized adhering to the principles of ALARA. MIP reconstructed images were created and reviewed. 119 cc Opti 320 given IV. COMPARISON: None. FINDINGS: Aorta: Moderate aortic atherosclerosis. No dissection or aneurysm. Pulmonary arteries: No pulmonary congestion. Lungs: Scattered interstitial thickening and pleural-parenchymal scarring particularly lingula and right middle lobe. No consolidation. Pleural space: No significant effusion. No pneumothorax. Heart: Moderate cardiomegaly. No significant pericardial effusion. Bones/joints: No acute fracture. Soft tissues: Small hiatal hernia. Adrenal limb thickening bilaterally, nonspecific. Lymph nodes: No enlarged lymph nodes. IMPRESSION: 1. No pulmonary embolism. 2. Cardiomegaly and small hiatal hernia. 3. Scattered pleural-parenchymal scarring, lungs are otherwise clear. 4. Bilateral adrenal limb thickening, nonspecific. Electronically signed by: Lily Martinez M.D. 09/17/23 00:26 AM
--- NOTE | 2023-09-17 00:35 | Emergency Department Note ---
Impression & Plan Acute hypoxemic respiratory failure, Acute exacerbation of chronic obstructive pulmonary disease, Non-ST elevation [place] (NSTEMI), Elevated brain natriuretic peptide (BNP) level, Acute hypokalemia, Hypomagnesemia, Leukocytosis ED Provider Note HISTORY OF PRESENT ILLNESS: Patient is a 62-year-old female presenting with shortness of breath. Patient reports she has been having progressively worsening shortness of breath over the last 5 days. Reports that she does not have a family doctor to follow-up with. Reports that "I could not take it anymore", prompting her presentation to the emergency department today. Denies any chest pain. Denies any DVT or PE history. Denies any fevers at home. Denies any recent sick contact exposures. Denies any supplemental oxygen use. She denies any history of cardiac stents. She has an albuterol inhaler and reports that she has been using it frequently over the last 5 days, with little improvement in her symptoms. Reports she is short of breath both at rest and with exertion, but worse with exertion. Patient denies any recent antibiotic or steroid use. ROS: as above PHYSICAL EXAM: Constitutional: Patient appears in no acute distress. HENT: Head: Normocephalic and atraumatic. Eyes: EOMI, PERRL Mouth/Throat: Mucous membranes moist. Neck: Trachea midline. Neck supple. Cardiovascular: Tachycardic with regular rhythm. No murmurs, rubs or gallops. Intact distal pulses. Pulmonary/Chest: No respiratory distress. Breath sounds clear and equal bilaterally. No wheezes or rales. Abdominal: Abdomen soft, no tenderness, rebound or guarding. Musculoskeletal: No edema, tenderness or deformity noted. Skin: Warm and dry. No rash, erythema, pallor or cyanosis Psychiatric: Appropriate mood and affect for situation. Neurological: Alert and keenly responsive. CN II-XII grossly intact, moving all extremities equally and fully. MDM: - Vitals signs showed tachycardia, hypertension and hypoxia. - History obtained via patient. History as above. - Chronic conditions affecting care: COPD; HTN - Differential diagnoses include, but are not limited to: Congestive heart failure; acute coronary syndrome; COPD/asthma exacerbation; pulmonary edema; pulmonary embolism; pneumonia; pneumothorax; viral syndrome - Order placed for continuous cardiac monitoring. At this time, monitor showed rate of 103 bpm with normal sinus rhythm, per my interpretation. - External medical records reviewed. Discharge summary dated 12/20/2021 was reviewed. Patient was admitted at that time for acute hypoxic respiratory failure and COPD exacerbation. - EKG interpreted by myself showed normal sinus rhythm. Rate tachycardic at 104 bpm. QT 336. No acute ischemic changes - Laboratory workup interpreted by myself showed leukocytosis (wBC 14.21) with left shift; normal PT/INR; hypokalemia (K 3.4); hypomagnesemia (Mg 1.6); elevated troponin (18.4); elevated BNP (122) - CXR negative for pneumonia, per my interpretation - CT PE negative for PE. Noted to have cardiomegaly with small hiatal hernia. - Patient given 20 mEq IV potassium and 1g IV magnesium for electrolyte replacement. - Viral respiratory panel negative - Patient's hypoxia and shortness of breath likely secondary to COPD exacerbation. Given 125 mg IV solumedrol and PO doxycycline. - Given patient's new oxygen requirement, will admit for her COPD exacerbation. - Discussion was had with hospice case manager about patient's case and need for admission - Hospitalist consulted for admission - [facility] ASSESSMENT AND PLAN: Diagnosis: acute hypoxic respiratory failure; COPD exacerbation; leukocytosis; acute hypokalemia; hypomagnesemia; NSTEMI; elevated BNP Plan: admit Past Med/Surg History Problem List (Updated 09/17/23 @ 00:41 by Bernadine Brito MD) Leukocytosis (Acute) Hypomagnesemia (Acute) Acute hypokalemia (Acute) Elevated brain natriuretic peptide (BNP) level (Acute) Non-ST elevation [place] (NSTEMI) (Acute) Acute exacerbation of chronic obstructive pulmonary disease (Acute) Acute hypoxemic respiratory failure (Acute) COPD exacerbation (Acute) HTN (hypertension) Acute on chronic respiratory failure with hypoxia Pneumonia Hypoxia (Acute) Chest tightness (Acute) COPD (chronic obstructive pulmonary disease) (Acute) Acute lumbar myofascial strain (Acute) Elevated blood pressure reading (Acute) Medical History Acute lumbar myofascial strain COPD (chronic obstructive pulmonary disease) HTN (hypertension) Surgical History History of tonsillectomy and adenoidectomy Hx of repair of left rotator cuff Family History Mother Cancer Lung Father Cancer Prostate and bladder cx Brother Melanoma Back, s/p removal Social History Smoking Status: Current some day smoker Tobacco Type: Cigarettes Second Hand Exposure: Yes; Do You Dip or Chew Tobacco: No; Hx Alcohol Use: Yes Alcohol type: beer and hard liquor Alcohol type Comment: 2- 3 daily Hx Substance Use: Yes Last Used Substance Other:: 30 years ago Preferred Language: Bhutanese Communication Ability: Effective Macadam Raker Required: No Beliefs That Will Affect Care: None Current Living Situation: Significant Other How many Children do You have: 2 Feels Safe at Home: Yes Assistive Devices: None Allergies Allergies Allergy/AdvReac Type Severity Reaction Status Date / Time No Known Allergies Allergy Mild Verified 09/17/23 00:53 Home Meds Home Medications Medication Instructions Recorded Confirmed albuterol sulfate 90 mcg/actuation 1 - 2 puff inhalation DIRECTED 09/17/23 09/17/23 aerosol inhaler PRN Shortness Of Breath Or Wheezing dextromethorphan-guaifenesin 10 10 ml PO Q4H PRN Cough 09/17/23 09/17/23 mg-100 mg/5 mL oral liquid (Tussin DM) guaifenesin 600 mg tablet, 600 mg PO Q12H PRN Congestion 09/17/23 09/17/23 extended release 12 hr (Mucinex) ibuprofen 200 mg tablet 600 mg PO Q6H PRN Pain 09/17/23 09/17/23 menthol-herbal drugs lozenges 1 kg mucous membrane DIRECTED 09/17/23 09/17/23 (Ricola lozenges) PRN Cough Results & Data (ED) Vital Signs Vital Signs - 24 hr 09/16/23 21:30 09/17/23 00:12 09/17/23 00:12 Temperature 36.9 C Temperature Source Temporal Artery Scan Pulse Rate 111 H Pulse Rate [Finger] Pulse Rate from SpO2 Sensor Pulse Rhythm [Finger] Respiratory Rate 24 Respiratory Effort / Characteristics Non-Labored Respiratory Depth Normal Respiratory Pattern Regular Blood Pressure 173/116 H Blood Pressure [Right Arm] Blood Pressure Mean 135 Blood Pressure Mean [Right Arm] Pulse Oximetry 91 90 Oxygen Delivery Method Room Air Room Air Room Air Oxygen Flow Rate Sepsis Recent Fever Within 48 Hours No Sepsis New/Unexplained Change in Mental Status No Sepsis Action Taken by Nursing No Action Required 09/17/23 00:12 09/17/23 00:12 09/17/23 00:12 Temperature Temperature Source Pulse Rate 103 H Pulse Rate [Finger] 96 H Pulse Rate from SpO2 Sensor Pulse Rhythm [Finger] Regular Respiratory Rate 20 Respiratory Effort / Characteristics Respiratory Depth Normal Respiratory Pattern Blood Pressure Blood Pressure [Right Arm] 168/102 H Blood Pressure Mean Blood Pressure Mean [Right Arm] 124 Pulse Oximetry 89 L Oxygen Delivery Method Room Air Room Air Oxygen Flow Rate Sepsis Recent Fever Within 48 Hours Sepsis New/Unexplained Change in Mental Status Sepsis Action Taken by Nursing 09/17/23 00:15 09/17/23 01:15 Temperature Temperature Source Pulse Rate 102 H 100 H Pulse Rate [Finger] Pulse Rate from SpO2 Sensor 102 H 113 H Pulse Rhythm [Finger] Respiratory Rate 16 23 Respiratory Effort / Characteristics Respiratory Depth Respiratory Pattern Blood Pressure 168/102 H 181/141 H Blood Pressure [Right Arm] Blood Pressure Mean 124 154 Blood Pressure Mean [Right Arm] Pulse Oximetry 87 L 91 Oxygen Delivery Method Nasal Cannula Oxygen Flow Rate 2 Sepsis Recent Fever Within 48 Hours Sepsis New/Unexplained Change in Mental Status Sepsis Action Taken by Nursing Laboratory Data 09/16/23 Unknown 09/16/23 Unknown Lab Results 09/16/23 09/16/23 Range/Units 21:50 Unknown WBC 14.21 H (4.8-10.8) K/ul RBC 5.06 (4.20-5.40) M/uL Hgb 16.3 H (12.0-16.0) g/dl Hct 47.8 H (37.0-47.0) % MCV 94.5 (80.0-100.0) fL MCH 32.2 (25.0-34.0) pg MCHC 34.1 (32.0-36.0) g/dL RDW Std Deviation 46.7 H (36.4-46.3) fL RDW Coeff of Carla 13.3 (11.5-14.5) % Plt Count 243 (130-400) K/uL MPV 11.5 (9.4-12.4) fL Immature Gran % (Auto) 0.4 % Neut % (Auto) 65.1 % Lymph % (Auto) 20.4 % [place] % (Auto) 12.5 % Eos % (Auto) 1.2 % Baso % (Auto) 0.4 % Neut # (Auto) 9.26 H (1.40-6.50) K/uL Lymph # (Auto) 2.90 (1.20-3.40) K/uL [place] # (Auto) 1.77 H (0.11-0.59) K/uL Eos # (Auto) 0.17 (0.00-0.50) K/uL Baso # (Auto) 0.06 (0.00-0.20) K/uL Immature Gran # (Auto) 0.05 (0.01-0.20) K/uL PT 10.2 (9.0-12.0) Seconds INR 0.9 (0.9-1.1) APTT 29 (21-31) Seconds PTT Ratio 1.1 Sodium 136 (136-145) mmol/L Potassium 3.4 L (3.5-5.1) mmol/L Chloride 102 (98-107) mmol/L Carbon Dioxide 24 (21-32) mmol/L Anion Gap 10 (3-11) BUN 11 (6-23) mg/dl Creatinine 0.54 L (0.6-1.2) mg/dl Est Cr Clr Drug Dosing 96.4 ml/min Est GFR ( Amer) 115.6 ml/min Est GFR (Non-Af Amer) 99.7 ml/min BUN/Creatinine Ratio 20.4 H (10-20) Glucose 102 H (70-99(Fasting)) mg/dl Calcium 9.5 (8.6-10.3) mg/dl Magnesium 1.6 L (1.7-2.4) mg/dl Total Bilirubin 0.6 (0.2-1.0) mg/dl AST 27 (13-39) U/L ALT 21 (7-52) U/L Alkaline Phosphatase 98 (34-104) U/L Troponin I High Sens 18.4 H (0-14) pg/ml B-Natriuretic Peptide 122 H (0-100) pg/ml Total Protein 7.9 (6.0-8.3) gm/dl Albumin 4.0 (3.4-5.0) gm/dl Globulin 3.9 (2.5-4.0) gm/dl Albumin/Globulin Ratio 1.0 (0.9-2) Adenovirus (PCR) Not Detected (NotDetected) B. pertussis DNA (PCR) Not Detected (NotDetected) B.parapertussis DNA PCR Not Detected (NotDetected) C. pneumoniae DNA (PCR) Not Detected (NotDetected) Coronavirus OC43 (PCR) Not Detected (NotDetected) Coronavirus HKU1 (PCR) Not Detected (NotDetected) Coronavirus 229E (PCR) Not Detected (NotDetected) SARS-CoV-2 (PCR) Not Detected (NotDetected) Coronavirus NL63 (PCR) Not Detected (NotDetected) Human Metapneumovir PCR Not Detected (NotDetected) Influenza Type A (PCR) Not Detected (NotDetected) Influenza Type B (PCR) Not Detected (NotDetected) M. pneumoniae (PCR) Not Detected (NotDetected) Parainfluenza 1 (PCR) Not Detected (NotDetected) Parainfluenza 2 (PCR) Not Detected (NotDetected) Parainfluenza 3 (PCR) Not Detected (NotDetected) Parainfluenza 4 (PCR) Not Detected (NotDetected) RSV (PCR) Not Detected (NotDetected) Entero/Rhino (PCR) Not Detected (NotDetected) Administered Medications Potassium Chloride (K Sukhdev / Wtr) 10 meq in 100 mls @ 100 mls/hr IV Q1H PETER Stop: 09/17/23 02:44 Last Admin: 09/17/23 00:59 Dose: 100 mls/hr Documented By: JARRET Discontinued Medications Doxycycline Hyclate (Doxycycline Hyclate 100 Mg Cap) 100 mg PO NOW STA Stop: 09/17/23 00:38 Last Admin: 09/17/23 00:58 Dose: 100 mg Documented By: JARRET Magnesium Sulfate/Dextrose (Magnesium Sulfate / D5w) 1 gm in 100 mls @ 100 mls/hr IV NOW STA Stop: 09/16/23 23:52 Last Infusion: 09/17/23 01:15 Dose: Infused Documented By: Admin: 09/17/23 00:18 Dose: 100 mls/hr Documented By: JARRET Ioversol (Optiray 320 100ml) 119 ml IV ONCE ONE Stop: 09/16/23 23:33 Last Admin: 09/17/23 00:22 Dose: Not Given Documented By: JARRET Ioversol (Optiray 320 125ml) 119 ml IV ONCE ONE Stop: 09/16/23 23:34 Last Admin: 09/16/23 23:34 Dose: 119 ml Documented By: YORDAN Methylprednisolone (Methylprednisolone 125 Mg/2 Ml Vial) 125 mg IV NOW STA Stop: 09/17/23 00:38 Last Admin: 09/17/23 00:58 Dose: 125 mg Documented By: JARRET Imaging Data Radiologist's Impression: Chest CTA 09/16/23 22:53 Exam(s): CTA CHEST IV Amt: 119 cc opti 320 EXAM: CT Angiography Chest With Intravenous Contrast CLINICAL HISTORY: Reason for exam: PE. TECHNIQUE: Axial computed tomographic angiography images of the chest with intravenous contrast. CTDI is 17.79 mGy and DLP is 561.16 mGy-cm. Automated exposure control was utilized for the study. A dose lowering technique was utilized adhering to the principles of ALARA. MIP reconstructed images were created and reviewed. 119 cc Opti 320 given IV. COMPARISON: None. FINDINGS: Aorta: Moderate aortic atherosclerosis. No dissection or aneurysm. Pulmonary arteries: No pulmonary congestion. Lungs: Scattered interstitial thickening and pleural-parenchymal scarring particularly lingula and right middle lobe. No consolidation. Pleural space: No significant effusion. No pneumothorax. Heart: Moderate cardiomegaly. No significant pericardial effusion. Bones/joints: No acute fracture. Soft tissues: Small hiatal hernia. Adrenal limb thickening bilaterally, nonspecific. Lymph nodes: No enlarged lymph nodes. IMPRESSION: 1. No pulmonary embolism. 2. Cardiomegaly and small hiatal hernia. 3. Scattered pleural-parenchymal scarring, lungs are otherwise clear. 4. Bilateral adrenal limb thickening, nonspecific. Electronically signed by: Lily Martinez M.D. 09/17/23 00:26 AM Discharge Plan Visit Data Chief Complaint: Shortness of Breath/Dyspnea Stated Complaint: SOB, CONGESTION ED Provider: Bernadine Brito Discharge Problem: Acute hypoxemic respiratory failure, Acute exacerbation of chronic obstructive pulmonary disease, Non-ST elevation [place] (NSTEMI), Elevated brain natriuretic peptide (BNP) level, Acute hypokalemia, Hypomagnesemia, Leukocytosis Forms Stand Alone Forms: My [facility] Pay with a Tweet Prescriptions Prescriptions: No Action dextromethorphan-guaifenesin [Tussin DM] 10-100 mg/5 mL Liquid 10 ml PO Q4H PRN (Reason: Cough) ibuprofen 200 mg Tablet 600 mg PO Q6H PRN (Reason: Pain) albuterol sulfate 90 mcg/actuation Hfa Aerosol Inhaler 1 - 2 puff INHALATION DIRECTED PRN (Reason: Shortness Of Breath Or Wheezing) Ricola Lozenge 1 kg MUCOUS MEMBRANE DIRECTED PRN (Reason: Cough) guaifenesin [Mucinex] 600 mg Tablet Extended Release 12hr 600 mg PO Q12H PRN (Reason: Congestion) Referrals Referrals: PCP,NO [Primary Care Provider] -
[2023-09-17] MEDS: methylPREDNISolone 125 MG/2 ML VIAL IV STA (00:58)
[2023-09-17] MEDS: DOXYCYCLINE HYCLATE 100 MG CAP PO STA (00:58)
[2023-09-17] MEDS: POTASSIUM CHLORIDE / WTR 10 MEQ/100 ML PLCT IV SCH (00:59)
[2023-09-17] MEDS: lisinopril 2.5 MG TAB PO STA (02:53)
[2023-09-17] MEDS: POTASSIUM CHLORIDE CRTAB 20 MEQ TABCR PO STA (02:53)
--- NOTE | 2023-09-17 03:29 | History & Physical Report ---
Date of Service September 17, 2023 Assessment & Plan (1) Acute hypoxemic respiratory failure: Plan: Secondary to COPD exacerbation secondary to complicated bronchitis Sepsis secondary above hypertension, secondary to illness and medical noncompliance Troponin elevation secondary to illness At risk alcohol consumption ongoing tobacco abuse Medical telemetry Supplemental O2 Doxycycline, nebs RTC, prednisone course Pulmonary consult if without improvement Resume lisinopril for BP control Follow troponin, TTE if with progression JODIE S at risk protocol, DT precautions Nicotine patch DVT prophylaxis. Lovenox subcu Full code Text document was generated using [employer] voice recognition software. It may contain grammatical or spelling errors. Kindly contact undersigned for clarification of any documentation item in question. History of Present Illness Chief Complaint: Worsening cough, SOB Primary Care Provider: NO PCP History obtained from patient and records. Medical history significant for COPD, hypertension, ongoing tobacco abuse. Last confinement December 2021 for respiratory failure secondary to COPD exacerbation secondary to COVID-19 exposure. Patient discharged on lisinopril for new diagnosis of hypertension. Patient did not start prescription because she was unable to establish with a family doctor. 5 days history of junky cough symptoms associated with worsening shortness of breath. Not sure about sick contacts. Denies aspiration. Chest pain from coughing. Denies headache. Denies fluid retention. Daily rescue inhaler use not helping. O2 sats 80s, SBP 180s upon arrival at the ER. Solu-Medrol, neb treatment, doxycycline administered at the ER Medical History as above Surgical History : Tonsillectomy/adenectomy, shoulder surgery Family History : Lung cancer, prostate cancer, bladder cancer, melanoma 1 pack daily, Personal/Social history : 2 drinks per night/denies abuse, [employer] employee Allergies Allergy/AdvReac Type Severity Reaction Status Date / Time No Known Allergies Allergy Mild Verified 09/17/23 00:53 Home Medications Medication Instructions Recorded Confirmed Type albuterol sulfate 90 mcg/actuation 1 - 2 puff inhalation DIRECTED 09/17/23 09/17/23 History aerosol inhaler PRN Shortness Of Breath Or Wheezing dextromethorphan-guaifenesin 10 10 ml PO Q4H PRN Cough 09/17/23 09/17/23 History mg-100 mg/5 mL oral liquid (Roxy SHARMA) guaifenesin 600 mg tablet, 600 mg PO Q12H PRN Congestion 09/17/23 09/17/23 History extended release 12 hr (Mucinex) ibuprofen 200 mg tablet 600 mg PO Q6H PRN Pain 09/17/23 09/17/23 History menthol-herbal drugs lozenges 1 kg mucous membrane DIRECTED 09/17/23 09/17/23 History (Ricola lozenges) PRN Cough Past Med/Surg History Problem List (Updated 09/17/23 @ 00:41 by Bernadine Brito MD) Leukocytosis (Acute) Hypomagnesemia (Acute) Acute hypokalemia (Acute) Elevated brain natriuretic peptide (BNP) level (Acute) Non-ST elevation [place] (NSTEMI) (Acute) Acute exacerbation of chronic obstructive pulmonary disease (Acute) Acute hypoxemic respiratory failure (Acute) COPD exacerbation (Acute) HTN (hypertension) Acute on chronic respiratory failure with hypoxia Pneumonia Hypoxia (Acute) Chest tightness (Acute) COPD (chronic obstructive pulmonary disease) (Acute) Acute lumbar myofascial strain (Acute) Elevated blood pressure reading (Acute) Medical History Acute lumbar myofascial strain COPD (chronic obstructive pulmonary disease) HTN (hypertension) Surgical History History of tonsillectomy and adenoidectomy Hx of repair of left rotator cuff Family History Mother Cancer Lung Father Cancer Prostate and bladder cx Brother Melanoma Back, s/p removal Social History Smoking Status: Current every day smoker Tobacco Type: Cigarettes Second Hand Exposure: Yes; Do You Dip or Chew Tobacco: No; Hx Alcohol Use: Yes Alcohol type: beer Alcohol type Comment: 2-3 daily Hx Substance Use: Yes Last Used Substance Other:: 30 years ago Preferred Language: Gabonese Communication Ability: Effective Tobacco Buyer Required: No Beliefs That Will Affect Care: None Current Living Situation: Significant Other How many Children do You have: 2 Feels Safe at Home: Yes Safety Concerns: Feels Safe At This Time Assistive Devices: Glasses Review of Systems Review of Systems: As per HPI, all other systems reviewed and negative Physical Exam Physical Exam: GENERAL: Slightly uncomfortable, no respiratory distress SKIN: Normal color, warm HEENT: [place] palpebral conjunctivae, no ptosis, dry buccal mucosa, nasal cannula in place NECK : Supple, no tenderness CHEST : Decreased breath sounds occasional expiratory wheezes,, no tenderness HEART : RRR, no obvious murmurs ABDOMEN: Some distention, nontender EXTREMITIES : No LE swelling/tenderness, no other conspicuous deformities noted NEUROLOGIC : Coherent, no facial asymmetry, no other gross focality Results & Data Results & Data Vital Signs (Past 12 Hours) Vital Signs Temp Pulse Pulse Resp BP BP Pulse Ox 09/17/23 01:15 100 H 23 181/141 H 91 09/17/23 00:15 102 H 16 168/102 H 87 L 09/17/23 00:12 103 H 09/17/23 00:12 89 L 09/17/23 00:12 96 H 20 168/102 H 09/17/23 00:12 90 09/17/23 00:12 09/16/23 21:30 36.9 C 111 H 24 173/116 H 91 O2 Del Method O2 Flow Rate 09/17/23 01:15 Nasal Cannula 2 09/17/23 00:15 09/17/23 00:12 09/17/23 00:12 Room Air 09/17/23 00:12 Room Air 09/17/23 00:12 Room Air 09/17/23 00:12 Room Air 09/16/23 21:30 Room Air Laboratory Results Laboratory Results WBC 14.21 K/ul (4.8-10.8) H 09/16/23 Unknown RBC 5.06 M/uL (4.20-5.40) 09/16/23 Unknown Hgb 16.3 g/dl (12.0-16.0) H 09/16/23 Unknown Hct 47.8 % (37.0-47.0) H 09/16/23 Unknown MCV 94.5 fL (80.0-100.0) 09/16/23 Unknown MCH 32.2 pg (25.0-34.0) 09/16/23 Unknown MCHC 34.1 g/dL (32.0-36.0) 09/16/23 Unknown RDW Std Deviation 46.7 fL (36.4-46.3) H 09/16/23 Unknown RDW Coeff of Carla 13.3 % (11.5-14.5) 09/16/23 Unknown Plt Count 243 K/uL (130-400) 09/16/23 Unknown MPV 11.5 fL (9.4-12.4) 09/16/23 Unknown Immature Gran % (Auto) 0.4 % 09/16/23 Unknown Neut % (Auto) 65.1 % 09/16/23 Unknown Lymph % (Auto) 20.4 % 09/16/23 Unknown Collin % (Auto) 12.5 % 09/16/23 Unknown Eos % (Auto) 1.2 % 09/16/23 Unknown Baso % (Auto) 0.4 % 09/16/23 Unknown Neut # (Auto) 9.26 K/uL (1.40-6.50) H 09/16/23 Unknown Lymph # (Auto) 2.90 K/uL (1.20-3.40) 09/16/23 Unknown Collin # (Auto) 1.77 K/uL (0.11-0.59) H 09/16/23 Unknown Eos # (Auto) 0.17 K/uL (0.00-0.50) 09/16/23 Unknown Baso # (Auto) 0.06 K/uL (0.00-0.20) 09/16/23 Unknown Immature Gran # (Auto) 0.05 K/uL (0.01-0.20) 09/16/23 Unknown PT 10.2 Seconds (9.0-12.0) 09/16/23 Unknown INR 0.9 (0.9-1.1) 09/16/23 Unknown APTT 29 Seconds (21-31) 09/16/23 Unknown PTT Ratio 1.1 09/16/23 Unknown Sodium 136 mmol/L (136-145) 09/16/23 Unknown Potassium 3.4 mmol/L (3.5-5.1) L 09/16/23 Unknown Chloride 102 mmol/L (98-107) 09/16/23 Unknown Carbon Dioxide 24 mmol/L (21-32) 09/16/23 Unknown Anion Gap 10 (3-11) 09/16/23 Unknown BUN 11 mg/dl (6-23) 09/16/23 Unknown Creatinine 0.54 mg/dl (0.6-1.2) L 09/16/23 Unknown Est Cr Clr Drug Dosing 96.4 ml/min 09/16/23 Unknown Est GFR ( Amer) 115.6 ml/min 09/16/23 Unknown Est GFR (Non-Af Amer) 99.7 ml/min 09/16/23 Unknown BUN/Creatinine Ratio 20.4 (10-20) H 09/16/23 Unknown Glucose 102 mg/dl (70-99(Fasting)) H 09/16/23 Unknown Calcium 9.5 mg/dl (8.6-10.3) 09/16/23 Unknown Magnesium 1.6 mg/dl (1.7-2.4) L 09/16/23 Unknown Total Bilirubin 0.6 mg/dl (0.2-1.0) 09/16/23 Unknown AST 27 U/L (13-39) 09/16/23 Unknown ALT 21 U/L (7-52) 09/16/23 Unknown Alkaline Phosphatase 98 U/L (34-104) 09/16/23 Unknown Troponin I High Sens 10.7 pg/ml (0-14) D 09/17/23 01:53 B-Natriuretic Peptide 122 pg/ml (0-100) H 09/16/23 21:50 Total Protein 7.9 gm/dl (6.0-8.3) 09/16/23 Unknown Albumin 4.0 gm/dl (3.4-5.0) 09/16/23 Unknown Globulin 3.9 gm/dl (2.5-4.0) 09/16/23 Unknown Albumin/Globulin Ratio 1.0 (0.9-2) 09/16/23 Unknown Adenovirus (PCR) Not Detected (NotDetected) 09/16/23 Unknown B. pertussis DNA (PCR) Not Detected (NotDetected) 09/16/23 Unknown B.parapertussis DNA PCR Not Detected (NotDetected) 09/16/23 Unknown C. pneumoniae DNA (PCR) Not Detected (NotDetected) 09/16/23 Unknown Coronavirus OC43 (PCR) Not Detected (NotDetected) 09/16/23 Unknown Coronavirus HKU1 (PCR) Not Detected (NotDetected) 09/16/23 Unknown Coronavirus 229E (PCR) Not Detected (NotDetected) 09/16/23 Unknown SARS-CoV-2 (PCR) Not Detected (NotDetected) 09/16/23 Unknown Coronavirus NL63 (PCR) Not Detected (NotDetected) 09/16/23 Unknown Human Metapneumovir PCR Not Detected (NotDetected) 09/16/23 Unknown Influenza Type A (PCR) Not Detected (NotDetected) 09/16/23 Unknown Influenza Type B (PCR) Not Detected (NotDetected) 09/16/23 Unknown M. pneumoniae (PCR) Not Detected (NotDetected) 09/16/23 Unknown Parainfluenza 1 (PCR) Not Detected (NotDetected) 09/16/23 Unknown Parainfluenza 2 (PCR) Not Detected (NotDetected) 09/16/23 Unknown Parainfluenza 3 (PCR) Not Detected (NotDetected) 09/16/23 Unknown Parainfluenza 4 (PCR) Not Detected (NotDetected) 09/16/23 Unknown RSV (PCR) Not Detected (NotDetected) 09/16/23 Unknown Entero/Rhino (PCR) Not Detected (NotDetected) 09/16/23 Unknown Impressions Chest CTA 09/16/23 22:53 Exam(s): CTA CHEST IV Amt: 119 cc opti 320 EXAM: CT Angiography Chest With Intravenous Contrast CLINICAL HISTORY: Reason for exam: PE. TECHNIQUE: Axial computed tomographic angiography images of the chest with intravenous contrast. CTDI is 17.79 mGy and DLP is 561.16 mGy-cm. Automated exposure control was utilized for the study. A dose lowering technique was utilized adhering to the principles of ALARA. MIP reconstructed images were created and reviewed. 119 cc Opti 320 given IV. COMPARISON: None. FINDINGS: Aorta: Moderate aortic atherosclerosis. No dissection or aneurysm. Pulmonary arteries: No pulmonary congestion. Lungs: Scattered interstitial thickening and pleural-parenchymal scarring particularly lingula and right middle lobe. No consolidation. Pleural space: No significant effusion. No pneumothorax. Heart: Moderate cardiomegaly. No significant pericardial effusion. Bones/joints: No acute fracture. Soft tissues: Small hiatal hernia. Adrenal limb thickening bilaterally, nonspecific. Lymph nodes: No enlarged lymph nodes. IMPRESSION: 1. No pulmonary embolism. 2. Cardiomegaly and small hiatal hernia. 3. Scattered pleural-parenchymal scarring, lungs are otherwise clear. 4. Bilateral adrenal limb thickening, nonspecific. Electronically signed by: Lily Martinez M.D. 09/17/23 00:26 AM Diagnostic Findings EKG as per my interpretation : Rate 105, sinus tachycardia, normal axis, T wave abnormalities lateral leads
[2023-09-17] MEDS ORDERED: PROMETHAZINE HCL 12.5 MG in SODIUM CHLORIDE 0.9% 50 ML IV PRN (03:36)
[2023-09-17] MEDS ORDERED: LORazepam 1 MG in SYRINGE 0.5 ML IV PRN (03:36)
[2023-09-17] MEDS ORDERED: ACETAMINOPHEN 325 MG TAB PO PRN ×2 (03:36→04:51)
[2023-09-17] MEDS ORDERED: oxyCODONE HCL IR 5 MG TAB (IMMEDIATE RELEASE) PO PRN (03:36)
[2023-09-17] MEDS: THIAMINE HCL 100 MG in SYRINGE 9 ML IV STA (04:53)
[2023-09-17 06:30] LABS: Hematocrit (blood only) 44.7 % (37.0-47.0); Hemoglobin 15.3 g/dl (12.0-16.0); Mean Corpuscular Hemoglobin 32.2 pg (25.0-34.0); Mean Corpuscular Hgb Conc 34.2 g/dL (32.0-36.0); Mean Corpuscular Volume 94.1 fL (80.0-100.0); Mean Platelet Volume 11.1 fL (9.4-12.4); Platelet Count 252 K/uL (130-400); RDW Coefficient of Variation 13.2 % (11.5-14.5); Red Blood Count 4.75 M/uL (4.20-5.40)
[2023-09-17] MEDS: IPRATROPIUM BROMIDE NEB SOLN 0.02% 0.5MG/2.5ML VIAL NEB SCH (06:51)
[2023-09-17] MEDS: LEVALBUTEROL 1.25 MG/3 ML NEB NEB SCH (06:51)
[2023-09-17 06:53] LABS: Basophils # (auto) 0.02 K/uL (0.00-0.20); Basophils % (auto) 0.2 %; Immature Granulocytes # (auto) 0.05 K/uL (0.01-0.20); Immature Granulocytes % (auto) 0.5 %; Lymphocytes # (auto) 0.76 K/uL (1.20-3.40); Monocytes # (auto) 0.11 K/uL (0.11-0.59); Neutrophils # (auto) 9.86 K/uL (1.40-6.50); Neutrophils % (auto) 91.3 %
--- NOTE | 2023-09-17 08:12 | XRay Report ---
XR chest 1V not portable HISTORY: Chest pain, nonspecific COMPARISON: Chest 12/17/2021. FINDINGS: The lungs are clear. Cardiac silhouette is normal in size. No pleural effusions. No pneumot horax. IMPRESSION: No acute process. ACT 112: Negative or not required by law. Electronically signed by: Dominic Ortiz M.D. 09/17/2023 8:10 AM
[2023-09-17 09:27] LABS: Potassium 4.2 mmol/L (3.5-5.1)
[2023-09-17] MEDS: NICOTINE 21 MG/24 HR TDSY TD SCH (09:27)
[2023-09-17] MEDS: FOLIC ACID 1 MG TAB PO SCH (09:28)
[2023-09-17] MEDS: lisinopril 10 MG TAB PO SCH ×2 (09:28→20:23)
[2023-09-17] MEDS: MULTIVITAMIN TAB PO SCH (09:29)
[2023-09-17] MEDS: predniSONE 20 MG TAB PO SCH (09:29)
[2023-09-17 09:34] LABS: BUN Creatinine Ratio 20.4 (10-20); Creatinine Clr Calc Pharmacy 106.3 ml/min; Est GFR (African American) 119.3 ml/min; Magnesium 2.5 mg/dl (1.7-2.4)
[2023-09-17] MEDS: NICOTINE 21 MG/24 HR TDSY TD STA (10:02)
[2023-09-17] MEDS: lisinopril 5 MG TAB PO STA (10:02)
[2023-09-17] MEDS: THIAMINE HCL 100 MG TAB PO SCH (11:27)
[2023-09-17] MEDS ORDERED: PNEUMOCOCCAL VACCINE (PCV20) 20-VAL CONJ-DIP CRM/PF 0.5 ML SYR IM ONE (12:30)
--- NOTE | 2023-09-17 14:05 | Hospitalist Progress Note ---
Date of Service September 17, 2023 Assessment & Plan (1) Acute hypoxemic respiratory failure: (2) Acute exacerbation of chronic obstructive pulmonary disease: (3) HTN (hypertension): (4) Tobacco abuse: Plan 62-year-old female with COPD and tobacco abuse who presents to the ED with shortness of breath and productive cough for the past week. RVP negative. CT chest as below 1. No pulmonary embolism. 2. Cardiomegaly and small hiatal hernia. 3. Scattered pleural-parenchymal scarring, lungs are otherwise clear. 4. Bilateral adrenal limb thickening, nonspecific. Acute hypoxic respiratory failure due to COPD exacerbation- RVP negative - patient requiring 3 L of oxygen via nasal cannula. will continue wean down as tolerated. Goal saturation > 90%. - Continue DuoNebs, Pulmicort/ Perforomist, hypertonic saline, Mucinex, IV Solu- Medrol, doxycycline, I-S, flutter valve - follow-up on sputum culture results - patient will need to stop amatoxin evaluation prior to discharge. Might need home oxygen. she will need to be set up with a PCP upon discharge Hypertension- new diagnosis. Lisinopril uptitrated, follow-up BP Tobacco abuse- still smokes 1 and half packs a day. Counseled on quitting smoking extensively. Currently on NicoDerm patch. Hypokalemia- resolved Hypomagnesemia-resolved Elevated troponin-likely demand ischemia, minimally elevated on admission now down to normal DVT prophylaxis- subcu Lovenox Disposition- and be discharged home pending medical stability, anticipate for 2-3 more days Updated partner at bedside Time spent approximately 35 minutes Admission and Anticipated Discharge Date Admission Date: September 17, 2023 Subjective Patient was seen examined bedside in presence of her partner. She feels about the same. states she has been having junky cough with shortness of breath for the past week and she has tried the inhalers and nebs from her partner and friends over the past week as she does not have insurance and her medicines of her own. She smokes 1 and half packs daily but cut down over the past week. She denies any fever, chills, chest pain, nausea or vomiting. She is still short of breath with cough with postural changes in bed. counseled on quitting smoking. States she is going to apply for Medicare when she turns 63 in 2 weeks. Review of Systems Review of Systems: All systems reviewed & are unremarkable except as noted in Subjective Physical Exam Physical Exam: General: Lying comfortably in bed, not in distress, on NC HEENT: EOMI, SHREYA, MMM Chest: conversional dyspnea with cough, Decreased breath sounds bilaterally with some end expiratory wheezes CVS: Regular rate and rhythm, normal heart sounds, no murmur Abdomen: Soft, non tender, not distended, normal bowel sounds Neuro: Awake, alert, oriented, conversing well, non focal Extremities: No cyanosis, clubbing or edema Results & Data Results & Data Vital Signs (Past 12 Hours) Vital Signs Temp Pulse Pulse Resp BP BP Pulse Ox 09/17/23 13:24 09/17/23 13:07 88 09/17/23 12:40 36.6 C 89 158/85 H 92 09/17/23 11:06 90 22 94 09/17/23 10:19 93 H 18 150/86 H 92 09/17/23 09:25 100 H 12 182/102 H 93 09/17/23 08:16 99 H 09/17/23 07:48 09/17/23 07:48 36.8 C 93 H 23 169/104 H 91 09/17/23 06:52 96 H 22 92 09/17/23 05:55 09/17/23 05:00 90 18 171/96 H 93 09/17/23 04:14 90 Pulse Ox O2 Del Method O2 Del Method O2 Flow Rate 09/17/23 13:24 Nasal Cannula 3 09/17/23 13:07 09/17/23 12:40 Nasal Cannula 3 09/17/23 11:06 Nasal Cannula 3 09/17/23 10:19 Nasal Cannula 3 09/17/23 09:25 Nasal Cannula 3 09/17/23 08:16 09/17/23 07:48 91 Nasal Cannula 09/17/23 07:48 Nasal Cannula 3 09/17/23 06:52 Nasal Cannula 3 09/17/23 05:55 90 Room Air 09/17/23 05:00 09/17/23 04:14 (3) HTN (hypertension) Hypertension type: unspecified Qualified Code(s): I10 - Essential (primary) hypertension
[2023-09-17] MEDS: methylPREDNISolone 40 MG in SYRINGE 0 ML IV SCH (15:42)
[2023-09-17] MEDS: BUDESONIDE 0.5 MG/2 ML VIAL (PULMICORT) NEB SCH (19:49)
[2023-09-17] MEDS: FORMOTEROL 20 MCG/2 ML VIAL NEB SCH (19:49)
[2023-09-17] MEDS: DOXYCYCLINE HYCLATE 100 MG CAP PO SCH (20:22)
[2023-09-17] MEDS: ENOXAPARIN INJ 40 MG/0.4 ML SYR SQ SCH (20:22)
[2023-09-17] MEDS: SODIUM CHLOR 7% 4 ML NEB NEB SCH (20:50)
[2023-09-18] MEDS ORDERED: lisinopril 2.5 MG TAB PO SCH (09:00)
[2023-09-18] MEDS ORDERED: lisinopril 5 MG TAB PO SCH (09:00)
[2023-09-18] MEDS ORDERED: THIAMINE HCL 100 MG TAB PO SCH (09:00)
--- NOTE | 2023-09-18 15:44 | Hospitalist Progress Note ---
Date of Service September 18, 2023 Assessment & Plan (1) Acute hypoxemic respiratory failure: (2) Acute exacerbation of chronic obstructive pulmonary disease: (3) HTN (hypertension): (4) Tobacco abuse: Plan 62-year-old female with COPD and tobacco abuse who presents to the ED with shortness of breath and productive cough for the past week. RVP negative. CT chest as below 1. No pulmonary embolism. 2. Cardiomegaly and small hiatal hernia. 3. Scattered pleural-parenchymal scarring, lungs are otherwise clear. 4. Bilateral adrenal limb thickening, nonspecific. Acute hypoxic respiratory failure due to COPD exacerbation- RVP negative - patient requiring 2 L of oxygen via nasal cannula. will continue wean down as tolerated. Goal saturation > 90%. - Continue DuoNebs, Pulmicort/ Perforomist, hypertonic saline, Mucinex, IV Solu- Medrol, doxycycline, I-S, flutter valve - follow-up on sputum culture results - patient will need to stop amatoxin evaluation prior to discharge. Might need home oxygen. she will need to be set up with a PCP upon discharge Hypertension- new diagnosis. Lisinopril uptitrated, follow-up BP Tobacco abuse- still smokes 1 and half packs a day. Counseled on quitting smoking extensively. Currently on NicoDerm patch. Hypokalemia- resolved Hypomagnesemia-resolved Elevated troponin-likely demand ischemia, minimally elevated on admission now down to normal DVT prophylaxis- subcu Lovenox Disposition- pending medical stability, anticipate for 2-3 more days Time spent approximately 35 minutes Admission and Anticipated Discharge Date Admission Date: September 17, 2023 Subjective patient was seen and examined bedside. She feels improved from admission. Sputum is getting cooperative manager. Cough and dyspnea improving. No fever or chills. Review of Systems Review of Systems: All systems reviewed & are unremarkable except as noted in Subjective Physical Exam Physical Exam: General: Lying comfortably in bed, not in distress, on NC HEENT: EOMI, SHREYA, MMM Chest: Decreased breath sounds bilaterally with prolonged expiratory phase, no wheezes today CVS: Regular rate and rhythm, normal heart sounds, no murmur Abdomen: Soft, non tender, not distended, normal bowel sounds Neuro: Awake, alert, oriented, conversing well, non focal Extremities: No cyanosis, clubbing or edema Results & Data Results & Data Vital Signs (Past 12 Hours) Vital Signs Temp Pulse Pulse Resp BP Pulse Ox Pulse Ox 09/18/23 15:11 89 18 94 09/18/23 14:54 73 09/18/23 12:28 37.2 C 75 16 156/77 H 92 09/18/23 11:05 73 18 93 09/18/23 10:20 62 09/18/23 08:34 89 20 138/76 91 09/18/23 08:00 94 09/18/23 07:45 09/18/23 07:18 92 H 18 94 O2 Del Method O2 Del Method O2 Flow Rate O2 Flow Rate 09/18/23 15:11 Nasal Cannula 2 09/18/23 14:54 09/18/23 12:28 Nasal Cannula 2 09/18/23 11:05 Nasal Cannula 2 09/18/23 10:20 09/18/23 08:34 Nebulizer 09/18/23 08:00 Nasal Cannula 3 09/18/23 07:45 Nasal Cannula 3 09/18/23 07:18 Nasal Cannula 3 (3) HTN (hypertension) Hypertension type: unspecified Qualified Code(s): I10 - Essential (primary) hypertension
--- NOTE | 2023-09-19 06:17 | Electrocardiogram Report ---
Test Reason : Blood Pressure : / mmHG Vent. Rate : 104 BPM Atrial Rate : 104 BPM P-R Int : 112 ms QRS Dur : 082 ms QT Int : 336 ms P-R-T Axes : 100 048 118 degrees QTc Int : 441 ms Sinus tachycardia Nonspecific ST and T wave abnormality Abnormal ECG When compared with ECG of 15-MAR-2021 01:35, Nonspecific T wave abnormality now evident in Lateral leads Confirmed by Danny Jordan ([id number]) on 09/19/2023 6:16:41 AM Referred By: REFERRED SELF Confirmed By:Danny Jordan
[2023-09-20] MEDS: lisinopril 20 MG TAB PO SCH (08:53)
[2023-09-20] MEDS: predniSONE 20 MG TAB PO SCH (08:53)
[2023-09-20] MEDS: cefUROXime axetil 500 MG TAB PO SCH (09:38)
[2023-09-20] MEDS ORDERED: ALBUT/IPRATROP 3MG/0.5MG NEB 3 ML VIAL NEB PRN (14:12)
--- NOTE | 2023-09-20 14:37 | Discharge Summary ---
Date of Service September 20, 2023 Admission HPI Per Admitting Provider History obtained from patient and records. Medical history significant for COPD, hypertension, ongoing tobacco abuse. Last confinement December 2021 for respiratory failure secondary to COPD exacerbation secondary to COVID-19 exposure. Patient discharged on lisinopril for new diagnosis of hypertension. Patient did not start prescription because she was unable to establish with a family doctor. 5 days history of junky cough symptoms associated with worsening shortness of breath. Not sure about sick contacts. Denies aspiration. Chest pain from coughing. Denies headache. Denies fluid retention. Daily rescue inhaler use not helping. O2 sats 80s, SBP 180s upon arrival at the ER. Solu-Medrol, neb treatment, doxycycline administered at the ER Medical History as above Surgical History : Tonsillectomy/adenectomy, shoulder surgery Family History : Lung cancer, prostate cancer, bladder cancer, melanoma 1 pack daily, Personal/Social history : 2 drinks per night/denies abuse, [employer] employee Admission Exam Per Admitting Provider GENERAL: Slightly uncomfortable, no respiratory distress SKIN: Normal color, warm HEENT: [place] palpebral conjunctivae, no ptosis, dry buccal mucosa, nasal cannula in place NECK : Supple, no tenderness CHEST : Decreased breath sounds occasional expiratory wheezes,, no tenderness HEART : RRR, no obvious murmurs ABDOMEN: Some distention, nontender EXTREMITIES : No LE swelling/tenderness, no other conspicuous deformities noted NEUROLOGIC : Coherent, no facial asymmetry, no other gross focality Principal Diagnosis Acute respiratory failure with hypoxia, COPD exacerbation due to H influenza Discharge Exam General: Lying comfortably in bed, not in distress, on NC HEENT: EOMI, SHREYA, MMM Chest: Fair breath sounds bilaterally, no wheezes or crackles heard today CVS: Regular rate and rhythm, normal heart sounds, no murmur Abdomen: Soft, non tender, not distended, normal bowel sounds Neuro: Awake, alert, oriented, conversing well, non focal Extremities: No cyanosis, clubbing or edema Discharge Data Allergies Allergy/AdvReac Type Severity Reaction Status Date / Time No Known Allergies Allergy Mild Verified 09/17/23 00:53 Consultations 09/17/23 01:00 ED Decision to Admit Stat Ordered Studies 09/16/23 22:53 CT for pulmonary embolism PE [CT angio chest PE protocol] Stat Laboratory Results WBC 10.80 K/ul (4.8-10.8) 09/17/23 06:00 RBC 4.75 M/uL (4.20-5.40) 09/17/23 06:00 Hgb 15.3 g/dl (12.0-16.0) 09/17/23 06:00 Hct 44.7 % (37.0-47.0) 09/17/23 06:00 MCV 94.1 fL (80.0-100.0) 09/17/23 06:00 MCH 32.2 pg (25.0-34.0) 09/17/23 06:00 MCHC 34.2 g/dL (32.0-36.0) 09/17/23 06:00 RDW Std Deviation 46.0 fL (36.4-46.3) 09/17/23 06:00 RDW Coeff of Carla 13.2 % (11.5-14.5) 09/17/23 06:00 Plt Count 252 K/uL (130-400) 09/17/23 06:00 MPV 11.1 fL (9.4-12.4) 09/17/23 06:00 Immature Gran % (Auto) 0.5 % 09/17/23 06:00 Neut % (Auto) 91.3 % 09/17/23 06:00 Lymph % (Auto) 7.0 % 09/17/23 06:00 [place] % (Auto) 1.0 % 09/17/23 06:00 Eos % (Auto) 0.0 % 09/17/23 06:00 Baso % (Auto) 0.2 % 09/17/23 06:00 Neut # (Auto) 9.86 K/uL (1.40-6.50) H 09/17/23 06:00 Lymph # (Auto) 0.76 K/uL (1.20-3.40) L 09/17/23 06:00 [place] # (Auto) 0.11 K/uL (0.11-0.59) 09/17/23 06:00 Eos # (Auto) 0.00 K/uL (0.00-0.50) 09/17/23 06:00 Baso # (Auto) 0.02 K/uL (0.00-0.20) 09/17/23 06:00 Immature Gran # (Auto) 0.05 K/uL (0.01-0.20) 09/17/23 06:00 PT 10.2 Seconds (9.0-12.0) 09/16/23 Unknown INR 0.9 (0.9-1.1) 09/16/23 Unknown APTT 29 Seconds (21-31) 09/16/23 Unknown PTT Ratio 1.1 09/16/23 Unknown Sodium 136 mmol/L (136-145) 09/17/23 06:00 Potassium 4.2 mmol/L (3.5-5.1) D 09/17/23 06:00 Chloride 105 mmol/L (98-107) 09/17/23 06:00 Carbon Dioxide 21 mmol/L (21-32) 09/17/23 06:00 Anion Gap 10 (3-11) 09/17/23 06:00 BUN 10 mg/dl (6-23) 09/17/23 06:00 Creatinine 0.49 mg/dl (0.6-1.2) L 09/17/23 06:00 Est Cr Clr Drug Dosing 106.3 ml/min 09/17/23 06:00 Est GFR ( Amer) 119.3 ml/min 09/17/23 06:00 Est GFR (Non-Af Amer) 103.0 ml/min 09/17/23 06:00 BUN/Creatinine Ratio 20.4 (10-20) H 09/17/23 06:00 Glucose 167 mg/dl (70-99(Fasting)) H 09/17/23 06:00 Lactate 0.9 mmol/L (0.4-2.0) 09/17/23 06:00 Calcium 9.0 mg/dl (8.6-10.3) 09/17/23 06:00 Magnesium 2.5 mg/dl (1.7-2.4) H 09/17/23 06:00 Total Bilirubin 0.6 mg/dl (0.2-1.0) 09/16/23 Unknown AST 27 U/L (13-39) 09/16/23 Unknown ALT 21 U/L (7-52) 09/16/23 Unknown Alkaline Phosphatase 98 U/L (34-104) 09/16/23 Unknown Troponin I High Sens 10.7 pg/ml (0-14) D 09/17/23 01:53 B-Natriuretic Peptide 122 pg/ml (0-100) H 09/16/23 21:50 Total Protein 7.9 gm/dl (6.0-8.3) 09/16/23 Unknown Albumin 4.0 gm/dl (3.4-5.0) 09/16/23 Unknown Globulin 3.9 gm/dl (2.5-4.0) 09/16/23 Unknown Albumin/Globulin Ratio 1.0 (0.9-2) 09/16/23 Unknown Ethyl Alcohol mg/dL < 10.0 mg/dl (<10.0) 09/17/23 06:00 Adenovirus (PCR) Not Detected (NotDetected) 09/16/23 Unknown B. pertussis DNA (PCR) Not Detected (NotDetected) 09/16/23 Unknown B.parapertussis DNA PCR Not Detected (NotDetected) 09/16/23 Unknown C. pneumoniae DNA (PCR) Not Detected (NotDetected) 09/16/23 Unknown Coronavirus OC43 (PCR) Not Detected (NotDetected) 09/16/23 Unknown Coronavirus HKU1 (PCR) Not Detected (NotDetected) 09/16/23 Unknown Coronavirus 229E (PCR) Not Detected (NotDetected) 09/16/23 Unknown SARS-CoV-2 (PCR) Not Detected (NotDetected) 09/16/23 Unknown Coronavirus NL63 (PCR) Not Detected (NotDetected) 09/16/23 Unknown Human Metapneumovir PCR Not Detected (NotDetected) 09/16/23 Unknown Influenza Type A (PCR) Not Detected (NotDetected) 09/16/23 Unknown Influenza Type B (PCR) Not Detected (NotDetected) 09/16/23 Unknown M. pneumoniae (PCR) Not Detected (NotDetected) 09/16/23 Unknown Parainfluenza 1 (PCR) Not Detected (NotDetected) 09/16/23 Unknown Parainfluenza 2 (PCR) Not Detected (NotDetected) 09/16/23 Unknown Parainfluenza 3 (PCR) Not Detected (NotDetected) 09/16/23 Unknown Parainfluenza 4 (PCR) Not Detected (NotDetected) 09/16/23 Unknown RSV (PCR) Not Detected (NotDetected) 09/16/23 Unknown Entero/Rhino (PCR) Not Detected (NotDetected) 09/16/23 Unknown Impressions Chest X-Ray 09/16/23 21:33 XR chest 1V not portable HISTORY: Chest pain, nonspecific COMPARISON: Chest 12/17/2021. FINDINGS: The lungs are clear. Cardiac silhouette is normal in size. No pleural effusions. No pneumothorax. IMPRESSION: No acute process. ACT 112: Negative or not required by law. Electronically signed by: Dominic Ortiz M.D. 09/17/2023 8:10 AM Chest CTA 09/16/23 22:53 Exam(s): CTA CHEST IV Amt: 119 cc opti 320 EXAM: CT Angiography Chest With Intravenous Contrast CLINICAL HISTORY: Reason for exam: PE. TECHNIQUE: Axial computed tomographic angiography images of the chest with intravenous contrast. CTDI is 17.79 mGy and DLP is 561.16 mGy-cm. Automated exposure control was utilized for the study. A dose lowering technique was utilized adhering to the principles of ALARA. MIP reconstructed images were created and reviewed. 119 cc Opti 320 given IV. COMPARISON: None. FINDINGS: Aorta: Moderate aortic atherosclerosis. No dissection or aneurysm. Pulmonary arteries: No pulmonary congestion. Lungs: Scattered interstitial thickening and pleural-parenchymal scarring particularly lingula and right middle lobe. No consolidation. Pleural space: No significant effusion. No pneumothorax. Heart: Moderate cardiomegaly. No significant pericardial effusion. Bones/joints: No acute fracture. Soft tissues: Small hiatal hernia. Adrenal limb thickening bilaterally, nonspecific. Lymph nodes: No enlarged lymph nodes. IMPRESSION: 1. No pulmonary embolism. 2. Cardiomegaly and small hiatal hernia. 3. Scattered pleural-parenchymal scarring, lungs are otherwise clear. 4. Bilateral adrenal limb thickening, nonspecific. Electronically signed by: iLly Martinez M.D. 09/17/23 00:26 AM Hospital Course (1) Acute hypoxemic respiratory failure: (2) Acute exacerbation of chronic obstructive pulmonary disease: (3) HTN (hypertension): (4) Tobacco abuse: Plan 62-year-old female with COPD and tobacco abuse who presents to the ED with shortness of breath and productive cough for the past week. She was using the nebs and inhalers from her partner and friends but it was not helping. She came to the ED. CT did not show PE or pneumonia. RVP negative. Started on iv steroids, nebs and doxy with significant improvement in her respiratory status. On oxygen for her hypoxic respiratory failure ( does not use home oxygen). She is anxious to go home today and able to ambulate now without significant dyspnea. 2 step O2 evaluation done which showed she would need 2 L at rest and 3 L with activities. CM will arrange home oxygen- script was provided. Sputum clx showed H influenza beta lactamase negative and was started on cefuroxime. She was seen by our nurse navigator and PCP follow up set up for 09/26. She is okay with the costs of all the new medications and states she will use good Rx to get them. She is also going to apply for medicare when she is turning 63 in 2 weeks. She is comfortable, stable and anxious to go home today. Did recommend strongly to quit smoking and follow up with PCP for further management. Do recommend seeing a church warden for PFTs. Acute hypoxic respiratory failure due to below - no home oxygen. requiring here - 2 step O2 evaluation done which showed she would need 2 L at rest and 3 L with activities. CM will arrange home oxygen- script was provided. She is okay with cost - Continue IS, flutter valve - F/u with PCP to wean down further Acute COPD exacerbation due to H influenza - RVP negative. Sputum culture with H influenza beta lactamase negative. - CT chest with no PE or PNA - S/p DuoNebs, Pulmicort/ Perforomist, hypertonic saline, Mucinex, IV Solu- Medrol, doxycycline, I-S, flutter valve and improving - Continue cefuroxime, prednisone taper, breo ellipta and nebs prn at discharge. She does have nebs machine at home. - F/u with PCP for further management with referral to church warden for PFTs Hypertension- new diagnosis. Continue Lisinopril 20 mg bid, Follow up with PCP for further management. Low salt diet. Tobacco abuse- still smokes 1 and half packs a day. Counseled on quitting smoking extensively. Hypokalemia- resolved Hypomagnesemia-resolved Elevated troponin-likely demand ischemia, minimally elevated on admission now down to normal Total Time Total Time Spent Total Time Spent (In Minutes): 45 Discharge Plan Discharge Items Patient Disposition: Home - Self-Care Reason For Visit: RESP FAILURE Discharge Diagnosis: Acute respiratory failure with hypoxia, COPD exacerbation due to H influenza Activity: Resume your previous activity Non-emergency contact: Primary Care Provider Call non-emergency contact if: you have any medication questions, your symptoms worsen, your pain is concerning for you and you have a fever Follow-up/Referrals: Joao Glaser DO [Physician] - 09/27/23 3:30 pm Diet: Regular Addtl Attending Provider Instructions: Continue prednisone taper and antibiotics as prescribed Use the inhaler everyday. You can use the nebs as needed upto 4 times daily as needed. Lisinopril for high blood pressure Use oxygen as prescribed. You should be able to wean off the oxygen as your COPD improves. Follow up with the family doctor for further management. Recommend seeing a lung doctor for pulmonary function test. Your family doctor can make the referral Strongly recommend quitting smoking Pending Studies at Discharge: No Stand-Alone Forms: [employer], Smoking Cessation Medications and DC Order Prescriptions: New lisinopril 20 mg Tablet 20 mg PO BID 30 Days Qty: 60 0RF cefuroxime axetil 500 mg Tablet 500 mg PO BID 7 Days Qty: 14 0RF ipratropium-albuterol 0.5 mg-3 mg(2.5 mg base)/3 mL Solution For Nebulization 3 ml NEB QIDR PRN (Reason: shortness of breath or wheezing) Qty: 120 0RF prednisone 20 mg tablet 20 mg PO UD 12 Days Qty: 10 0RF Rx Instructions: Take 2 tabs daily for 4 days, then 1 tab daily for 4 days, then 0.5 tab daily for 4 days then stop fluticasone furoate-vilanterol [Breo Ellipta] 100-25 mcg/dose blister with device 1 inh inhalation DAILY Qty: 60 0RF Continued dextromethorphan-guaifenesin [Tussin DM] 10-100 mg/5 mL Liquid 10 ml PO Q4H PRN (Reason: Cough) ibuprofen 200 mg Tablet 600 mg PO Q6H PRN (Reason: Pain) albuterol sulfate 90 mcg/actuation Hfa Aerosol Inhaler 1 - 2 puff INHALATION DIRECTED PRN (Reason: Shortness Of Breath Or Wheezing) Ricola Lozenge 1 kg MUCOUS MEMBRANE DIRECTED PRN (Reason: Cough) guaifenesin [Mucinex] 600 mg Tablet Extended Release 12hr 600 mg PO Q12H PRN (Reason: Congestion) Discharge Orders: Discharge Order (Routine); Ordered 09/20/23 Ordered By: Angelo Hyman/Other Patient Handouts: Lisinopril Oral Tablet, Prednisone Oral Tablet, Cefuroxime Oral Tablet Admission Data Admit Date/Time: 09/17/23 03:35 Attending Provider: Angelo Figueroa Admit Provider: Noe Dos Santos Primary Care Provider: PCP,NO Other Providers: Noe Dos Santos Other Interventions: Discharge Summary Assessment (RN) Last Done: 09/20/23 14:40
== END 2023-09-20 16:16 | disposition home or self-care (01) | DRG 190 ==
LOC: ED 21:27 → EDINP 09-17 03:35 → 2W 09-17 04:52